=== PATIENT | male | born 1945 | race African-American/Black ===

== ENCOUNTER 2017-04-21 17:34 | Inpatient (IN) | payer OTHER, BC ==
--- NOTE | 2017-04-21 17:39 | PDOC ---
Attending Attestation - Resident Resident Name: Alley Lizamaudmila - ED Attending Attestation I have performed the following: I have examined & evaluated the patient, The case was reviewed & discussed with the resident, I agree w/resident's findings & plan, Exceptions are as noted - HPI HPI: 04/21/17 17:37 The patient is 71 year old male with a significant past medical history of HTN, HLD, CAD/CMP (s/p cardiac transplant 2007) who presents to the ED after he lost consciousness while in the elevator. It was witnessed and had no preceeding symptoms. The loss of consciousness was brief. There was no noted seizure activity. He denies incontinence. He denies chest pain, dyspnea, palpitations, nausea, diaphoresis. 04/21/17 17:45 - Physicial Exam PE: 04/21/17 17:38 Vitals noted He is well appearing 04/21/17 17:39 - Medical Decision Making 04/21/17 17:39 He is well appearing and in no acute distress Will obtain labs, EKG, CXR 04/21/17 17:39 04/21/17 18:30 Chest x-ray emergency Department interpretation: Status post median sternotomy wires noted, no acute pathology demonstrated Labs pending 04/21/17 18:43 Clinical impression: Syncope Elevated creatinine (with unclear baseline) Case discussed in detail with admitting provider including history, physical exam and ancillary studies. Admitting physician has assumed care for the patient, will follow all pending diagnostics and will complete the evaluation and treatment. 04/21/17 18:49 Discharge Disposition - Diagnosis Syncope - Discharge Dispostion Condition at time of disposition: Stable
--- NOTE | 2017-04-21 18:07 | PDOC ---
History of Present Illness - General History Source: Patient, Family Exam Limitations: No Limitations - History of Present Illness Initial Comments: 04/21/17 18:07 The patient is a 71 year old male, with significant past medical history HTN, HLD, [place] s/p heart transplant in 2007, GERD, who presents today after LOC in the elevator 10 minutes ago when leaving the hospital from visiting his , who is an inpatient. The patient was with his daughter who caught him as he slumped down to the ground after losing consciousness. He denies head trauma. He states that one minute he was fine and the next he was being picked up from the floor. He denies dizziness, lightheadedness, headache and has no complaints at this time. He reports chronic diarrhea and attributes it to side effects of one of his medications. He notes that this has happened several years ago after his heart transplant and was told it was due to dehydration. He denies dizziness, lightheadedness He denies chest pain, SOB, palpitations. He denies abdominal pain, recent leg swelling. He denies fever, chills, nausea, vomiting. Allergies: contrast dye Awning Spreader: Dr. Rashard Velez <Kaitlin Christine - Last Filed: 04/21/17 18:07> - General History Source: Patient Exam Limitations: No Limitations <Brooke Lizama - Last Filed: 04/21/17 18:45> - General Chief Complaint: Syncope/Near Syncope Stated Complaint: SYNCOPE Time Seen by Provider: 04/21/17 17:36 Past History <Kaitlin Christine - Last Filed: 04/21/17 18:07> - Past Medical History Cardiac Disorders: Yes (CAD, [place]) GI Disorders: Yes (GERD) Hypercholesterolemia: Yes - Surgical History Cardiac Surgery: Yes (HEART TRANSPLANT 2007 [facility]) - Psycho/Social/Smoking Cessation Hx Anxiety: No Suicidal Ideation: No Smoking History: Never smoked Information on smoking cessation initiated: No Hx Alcohol Use: No Drug/Substance Use Hx: No <Brooke Lizama - Last Filed: 04/21/17 18:45> - Past Medical History Allergies/Adverse Reactions: Allergies Allergy/AdvReac Type Severity Reaction Status Date / Time CONTRAST DYE Allergy Uncoded 04/21/17 17:36 Home Medications: Ambulatory Orders Aspirin [Aspirin EC] 325 mg PO DAILY 04/21/17 Calcium Carbonate [Calcium] 500 mg PO DAILY 04/21/17 Citalopram Hydrobromide [Celexa -] 10 mg PO DAILY 04/21/17 Doxazosin Mesylate 2 mg PO DAILY 04/21/17 Metoprolol Succinate [Toprol Xl] 50 mg PO DAILY 04/21/17 Multivitamins [Tab-A-Vit -] 1 tab PO DAILY 04/21/17 Mycophenolate Sodium [Myfortic] 1,440 mg PO BID 04/21/17 Pantoprazole Sodium [Protonix] 40 mg PO DAILY 04/21/17 Pravastatin Sodium [Pravachol (Nf)] 40 mg PO HS 04/21/17 Tacrolimus [Prograf] 5 mg PO BID 04/21/17 Review of Systems - Review of Systems Able to Perform ROS?: Yes Comments:: 04/21/17 18:07 GENERAL: Well-appearing, well-nourished. No apparent distress. HEENT: Normocephalic, atraumatic. PERRL, EOM intact. CARDIOVASCULAR: Normal S1, S2. Regular rate and rhythm. PULMONARY: Clear to auscultation bilaterally. ABDOMEN: Soft, non-distended, non-tender. EXTREMITIES: Normal ROM in all four extremities. No gross deformities. SKIN: Warm, dry. No rash NEUROLOGICAL: +LOC. No focal neurological deficits. <Kaitlin Christine - Last Filed: 04/21/17 18:07> *Physical Exam - Vital Signs Last Vital Signs Temp Pulse Resp BP Pulse Ox 97.8 F 80 18 96/65 100 04/21/17 17:35 04/21/17 17:35 04/21/17 17:35 04/21/17 17:35 04/21/17 17:35 - Physical Exam Comments: 04/21/17 18:08 GENERAL: Well developed, well nourished. Awake, alert and oriented x3. In no acute distress. HEENT: Normocephalic, atraumatic. PERRLA, EOMI. No conjunctival pallor. Sclera are non- icteric. Moist mucous membranes, but overall the patient does appear a little bit dry. Oropharynx is clear. NECK: Supple. Full ROM. No JVD. Carotid pulses 2+ and symmetric, without bruits. No thyromegaly. No lymphadenopathy. CARDIOVASCULAR: Regular rate and rhythm. No murmurs, rubs, or gallops. Distal pulses are 2+ and symmetric. No JVD. No hepatojugular reflex. PULMONARY: No evidence of respiratory distress. Lungs clear to auscultation bilaterally. No wheezing, rales or rhonchi. ABDOMINAL: Soft. Non-tender. Non-distended. No rebound or guarding. No organomegaly. Normoactive bowel sounds. MUSCULOSKELETAL Normal range of motion at all joints. No bony deformities or tenderness. No CVA tenderness. EXTREMITIES: No cyanosis. No clubbing. No edema. No calf tenderness. SKIN: Warm and dry. Normal capillary refill. No rashes. No jaundice. NEUROLOGICAL: Alert, awake, appropriate. Cranial nerves 2-12 intact. PSYCHIATRIC: Cooperative. Good eye contact. Appropriate mood and affect. <Kaitlin Christine - Last Filed: 04/21/17 18:07> - Vital Signs Last Vital Signs Temp Pulse Resp BP Pulse Ox 97.8 F 80 18 96/65 100 04/21/17 17:35 04/21/17 17:35 04/21/17 17:35 04/21/17 17:35 04/21/17 17:35 <Brooke Lizama - Last Filed: 04/21/17 18:45> ED Treatment Course - LABORATORY CBC & Chemistry Diagram: 04/21/17 18:00 04/21/17 18:00 <Kaitlin Christine - Last Filed: 04/21/17 18:07> - LABORATORY CBC & Chemistry Diagram: 04/21/17 18:00 04/21/17 18:00 - RADIOLOGY Radiology Studies Ordered: Category Date Time Status CXRPORT [CHEST X-RAY PORTABLE*] [RAD] Stat Radiology 04/21/17 17:55 Ordered <Boroke Lizama - Last Filed: 04/21/17 18:45> Medical Decision Making - Medical Decision Making 04/21/17 18:12 Patient presents with clinical picture most consistent with arrythmic syncope, given taht he has history of cardiac transplant and no prodrome prior to syncope. EKG shows RBBB and nonspecific t inversions in anterior and precordial leads, RBBB with normal axis, ns rythm. Patient is comfortable and hemodynamically stable. order cbc w diff, cmp, cardiac profile, mag, tsh, ua, cxr 04/21/17 18:23 CBC unremarkable 04/21/17 18:30 CXR s/p sternotomy, unremarkable for intrathoracic pathology 04/21/17 18:39 BUN Creat 31/2.9, baseline unknown. Patient and daughter deny prior renal issues. We are only able to obtain a send out tacrolimus level. will hydrate and recheck labs AM 04/21/17 18:40 Na 132 mag 1.8, K 4.4 Cardiac profile unremarkable. Start NS IV bolus 500cc. 04/21/17 18:41 Patient to be placed on tele obs overnight <Brooke Lizama - Last Filed: 04/21/17 18:45> *DC/Admit/Observation/Transfer - Attestations Scribe Attestion: 04/21/17 18:08 Documentation prepared by TIFF Marshall, acting as medical records administrator for Renato Newell MD. <Kaitlin Christine - Last Filed: 04/21/17 18:07> - Discharge Dispostion Admit: Yes <Brooke Lizama - Last Filed: 04/21/17 18:45> Diagnosis at time of Disposition: Syncope - Discharge Dispostion Condition at time of disposition: Stable
[2017-04-21 18:12] LABS: BASOPHIL 0.6 % (0-2.0); EOSINOPHIL 0.2 % (0-4.5); MCH 28.5 pg (25.7-33.7); MCHC 32.7 g/dl (32.0-35.9); MEAN CELL VOLUME 87.1 fl (80-96); MEAN PLT VOLUME 9.4 fl (7.5-11.1); NEUTROPHILS 65.5 % (42.8-82.8); PLATELET COUNT 206 K/MM3 (134-434); WHITE BLOOD COUNT 7.3 K/mm3 (4.0-10.8)
[2017-04-21 18:21] LABS: CPK(DFH) 75 IU/L (38-174)
[2017-04-21 18:22] LABS: ALK PHOS 58 U/L (32-92); ANION GAP 10 (8-16); BILIRUBIN,TOTAL 1.1 mg/dl (0.2-1.0); CALCIUM 8.8 mg/dl (8.4-10.2); CO2 23 mmol/L (22-28); CREATININE 2.9 mg/dl (0.6-1.3); GLUCOSE,RANDOM 103 mg/dl (74-106); MAGNESIUM 1.8 mg/dL (1.8-2.4); SGOT/AST 22 U/L (10-42); SGPT/ALT 24 U/L (10-40); TOT PROT 6.7 g/dl (6.4-8.3)
[2017-04-21 18:35] LABS: TROPONIN I (DFP) < 0.03 ng/ml (0.03-0.50)
[2017-04-21] MEDS ORDERED: SODIUM CHLORIDE 500 ML IV STA (18:41)
[2017-04-21 19:05] LABS: THYROID STIMULATING HORMONE 2.83 uIU/ml (0.358-3.74)
--- NOTE | 2017-04-21 21:40 | HP ---
CHIEF COMPLAINT: Syncope PCP: Dr. Langston HISTORY OF PRESENT ILLNESS: This is a 71 year old male with a past medical history of Hypertension, Hyperlipidemia, [place] s/p Heart Transplant (on Tacrolimus, 2007), GERD. Who presents to the emergency department with a syncopal episode x today. Patient reports having a syncopal episode while in the elevator afterPatient reports feeling lightheaded and dizzy prior to the event. Patient reports not eating due to decreased appetite x 24 hrs. Patient's daughter reports while the patient was in the elevator he began to sway and he fainted. She reports catching him and sliding him down onto his buttock. ER course was notable for: (1) EKG-RBBB, non-specific TWI, anterior/precordial leads (2) Chest Xray- no acute pathology (3) Na 132 (4) CISCO- BUN 31, Cr 2.9 Recent Travel: None PAST MEDICAL HISTORY: See HPI PAST SURGICAL HISTORY: Heart Transplant 2007 [facility] Cardiac Cath Social History: Smoking: Former > 40 yrs ago Alcohol: Former Drugs: None Lives with spouse Family History: Father- Pneumonia, Sister- Hypertension Allergies Iodinated Contrast Media - Oral and Allergy (Unknown, Verified 04/21/17 19:33) HOME MEDICATIONS: Home Medications Medication Instructions Recorded Aspirin [Aspirin EC] 325 mg PO DAILY 04/21/17 Calcium Carbonate [Calcium] 500 mg PO DAILY 04/21/17 Citalopram Hydrobromide [Celexa -] 10 mg PO DAILY 04/21/17 Doxazosin Mesylate 2 mg PO DAILY 04/21/17 Metoprolol Succinate [Toprol Xl] 50 mg PO DAILY 04/21/17 Multivitamins [Tab-A-Vit -] 1 tab PO DAILY 04/21/17 Mycophenolate Sodium [Myfortic] 720 mg PO BID 04/21/17 Pantoprazole Sodium [Protonix] 40 mg PO DAILY 04/21/17 Pravastatin Sodium [Pravachol (Nf)] 40 mg PO HS 04/21/17 Tacrolimus [Prograf] 0.5 mg PO BID 04/21/17 REVIEW OF SYSTEMS CONSTITUTIONAL: loss of appetite Absent: fever, chills, diaphoresis, generalized weakness, malaise, weight change HEENT: Absent: rhinorrhea, nasal congestion, throat pain, throat swelling, difficulty swallowing, mouth swelling, ear pain, eye pain, visual changes CARDIOVASCULAR: syncope, lightheadedness Absent: chest pain, palpitations, irregular heart rate, peripheral edema RESPIRATORY: Absent: cough, shortness of breath, dyspnea with exertion, orthopnea, wheezing, stridor, hemoptysis GASTROINTESTINAL: Absent: abdominal pain, abdominal distension, nausea, vomiting, diarrhea, constipation, melena, hematochezia GENITOURINARY: Absent: dysuria, frequency, urgency, hesitancy, hematuria, flank pain, genital pain MUSCULOSKELETAL: Absent: myalgia, arthralgia, joint swelling, back pain, neck pain SKIN: Absent: rash, itching, pallor HEMATOLOGIC/IMMUNOLOGIC: Absent: easy bleeding, easy bruising, lymphadenopathy, frequent infections ENDOCRINE: Absent: unexplained weight gain, unexplained weight loss, heat intolerance, cold intolerance NEUROLOGIC: dizziness Absent: headache, focal weakness or paresthesias, unsteady gait, seizure, mental status changes, bladder or bowel incontinence PSYCHIATRIC: Absent: anxiety, depression, suicidal or homicidal ideation, hallucinations. PHYSICAL EXAMINATION Vital Signs - 24 hr 04/21/17 20:00 Temperature 98.4 F Pulse Rate [ 78 Left Apical] Respiratory 18 Rate Blood Pressure 117/76 [Left Arm] O2 Sat by Pulse 100 Oximetry (%) GENERAL: Awake, alert, and fully oriented, in no acute distress. HEAD: Normal with no signs of trauma. EYES: Pupils equal, round and reactive to light, extraocular movements intact, sclera anicteric, conjunctiva clear. No lid lag. EARS, NOSE, THROAT: Ears normal, nares patent, oropharynx clear without exudates. Dry mucous membranes. NECK: Normal range of motion, supple without lymphadenopathy, JVD, or masses. LUNGS: Breath sounds equal, clear to auscultation bilaterally. No wheezes, and no crackles. No accessory muscle use. HEART: Regular rate and rhythm, normal S1 and S2 without murmur, rub or gallop. ABDOMEN: Soft, nontender, not distended, normoactive bowel sounds, no guarding, no rebound, no masses. No hepatomegaly or splenomegaly. MUSCULOSKELETAL: Normal range of motion at all joints. No bony deformities or tenderness. No CVA tenderness. UPPER EXTREMITIES: 2+ pulses, warm, well-perfused. No cyanosis. No clubbing. No peripheral edema. LOWER EXTREMITIES: 2+ pulses, warm, well-perfused. No calf tenderness. No peripheral edema. NEUROLOGICAL: Cranial nerves II-XII intact. Normal speech. Gait not observed. Fine tremor to bilateral upper extremities noted PSYCHIATRIC: Cooperative. Good eye contact. Appropriate mood and affect. SKIN: Warm, dry, normal turgor, no rashes. Normal capillary refill. Healed surgical scars to mid-sternum, left chest wall noted Laboratory Results - last 24 hr 04/21/17 04/21/17 04/21/17 18:00 18:00 18:00 WBC 7.3 RBC 4.36 Hgb 12.4 Hct 38.0 MCV 87.1 MCHC 32.7 RDW 14.0 Plt Count 206 MPV 9.4 Neutrophils % 65.5 Lymphocytes % 21.8 Monocytes % 11.9 H Eosinophils % 0.2 Basophils % 0.6 Sodium 132 L Potassium 4.4 Chloride 99 Carbon Dioxide 23 Anion Gap 10 BUN 31 H Creatinine 2.9 H Creat Clearance w eGFR 21.50 Random Glucose 103 Calcium 8.8 Magnesium 1.8 Total Bilirubin 1.1 H AST 22 ALT 24 Alkaline Phosphatase 58 Creatine Kinase 75 Troponin I < 0.03 L Total Protein 6.7 Albumin 4.0 TSH 2.83 ASSESSMENT/PLAN: This is a 71 y/o male with a PMHx of: HTN, HLD, [place] s/p Heart Transplant (on Prograf, ), GERD. Placed on Telemetry Observation for further evaluation of their emergent condition. Plan: 1. Syncope - Likely secondary to dehydration vs arrhythmia - Tele monitoring - Serial Enzymes neg x1 - Trend Chago - Carotid Doppler in am - Consider Echo in outpatient - Ortho Statics - Monitor CBC, BMP 2. Acute Kidney Injury - Likely secondary to Dehydration - NS bolus given in ED - Repeat BMP in am - Consider Renal US if Cr trends up - f/u with Nephrology in outpatient upon d/c 3. Hypertension - Controlled - Monitor BP - Continue Lopressor with parameters 4. Hyperlipidemia - Continue Statin - Monitor LFTs - Lipid Profile in am 5. CAD/[place] Hx - Stable - s/p Heart Transplant, 08 - Tele monitoring - Patient denies chest pain or palpitations - Serial Enzymes neg x1 - EKG reviewed, no prior study available to compare - Continue home meds-Metoprolol, Myfortic, Prograf 6. GERD - Continue PPI 7. Depression - Continue Celexa 8. FEN - Tolerates PO fluids - Replete lytes prn - Low Na, Low Cholesterol Diet 9. DVT Prophylaxis - OOB - SCDs - Consider AC if LOS > 48 hrs Code Status: Full Code Problem List - Problem (1) Syncope Code(s): R55 - SYNCOPE AND COLLAPSE (2) HTN (hypertension) Code(s): I10 - ESSENTIAL (PRIMARY) HYPERTENSION (3) HLD (hyperlipidemia) Code(s): E78.5 - HYPERLIPIDEMIA, UNSPECIFIED (4) Status post heart transplant Code(s): Z94.1 - HEART TRANSPLANT STATUS (5) GERD (gastroesophageal reflux disease) Code(s): K21.9 - GASTRO-ESOPHAGEAL REFLUX DISEASE WITHOUT ESOPHAGITIS (6) DVT prophylaxis Code(s): [id number] - Visit type - Emergency Visit Emergency Visit: Yes ED Registration Date: 04/21/17 Care time: The patient presented to the Emergency Department on the above date and was hospitalized for further evaluation of their emergent condition. - New Patient This patient is new to me today: Yes Date on this admission: 04/21/17 - Critical Care Critical Care patient: No
[2017-04-21] MEDS: ATORVASTATIN CA 10 MG TABLET (FP) PO SCH (21:45)
[2017-04-21] MEDS ORDERED: TACROLIMUS 5 MG PO SCH (22:00)
[2017-04-21 22:31] VITALS: BMI 27.4
[2017-04-21 23:42] LABS: URINE APPEARANCE Clear; URINE BILIRUBIN Negative (NEGATIVE); URINE GLUCOSE (UA) Negative (NEGATIVE); URINE KETONE Negative (NEGATIVE); URINE LEUK ESTERASE Negative (NEGATIVE); URINE NITRITE Negative (NEGATIVE); URINE PROTEIN Negative (NEGATIVE); URINE UROBILINOGEN 0.2 E.U/dl (0.2-1.0)
[2017-04-21 23:44] LABS: URINE BLOOD 3 (NEGATIVE); URINE COLOR YELLOW
[2017-04-21 23:52] LABS: URINE BACTERIA FEW /hpf (NEGATIVE); URINE WBC 0-3 (3-5)
[2017-04-21 23:57] LABS: CPK(DFH) 68 IU/L (38-174)
[2017-04-22 00:04] LABS: TROPONIN I (DFP) < 0.03 ng/ml (0.03-0.50)
--- NOTE | 2017-04-22 07:24 | PN ---
Physical Exam: SUBJECTIVE: Patient seen and examined at bedside without any complaints at this time. OBJECTIVE: Vital Signs Period Temp Pulse Resp BP Sys/Cooley Pulse Ox Last 24 Hr 97.7 F-98.4 F 75-82 18-19 117-133/76-86 100-100 GENERAL: The patient is awake, alert, and fully oriented, in no acute distress. LUNGS: Breath sounds equal, clear to auscultation bilaterally, no wheezes, no crackles, no accessory muscle use. HEART: Regular rate and rhythm, S1, S2 without murmur, rub or gallop. Denies SOB or chest pain ABDOMEN: Soft, nontender, nondistended, normoactive bowel sounds, no guarding, no rebound, no hepatosplenomegaly, no masses. EXTREMITIES: 2+ pulses, warm, well-perfused, no edema. NEUROLOGICAL: Cranial nerves II through XII grossly intact. Normal speech, gait not observed. PSYCH: Normal mood, normal affect. SKIN: Warm, dry, normal turgor, no rashes or lesions noted Laboratory Results - last 24 hr 04/21/17 04/21/17 22:31 23:30 Creatine Kinase 68 Troponin I < 0.03 L Urine Color Yellow Urine Appearance Clear Urine pH 5.0 Ur Specific Kiron <= 1.005 Urine Protein Negative Urine Glucose (UA) Negative Urine Ketones Negative Urine Blood 3 H Urine Nitrite Negative Urine Bilirubin Negative Urine Urobilinogen 0.2 e.u/dl Ur Leukocyte Esterase Negative Urine RBC 10-15 Urine WBC 0-3 Ur Epithelial Cells Few Urine Bacteria Few Active Medications Generic Name Dose Route Start Last Admin Trade Name Freq PRN Reason Stop Dose Admin Aspirin 325 mg 04/22/17 10:00 Ecotrin - PO DAILY [facility] Atorvastatin Calcium 10 mg 04/21/17 22:00 04/21/17 21:45 Lipitor - PO 10 mg HS ANDRES Administration Calcium Carbonate 500 mg 04/22/17 10:00 Os-Piyush 500mg - PO DAILY ANDRES Citalopram Hydrobromide 10 mg 04/22/17 10:00 Celexa - PO DAILY [facility]RES Doxazosin Mesylate 2 mg 04/22/17 10:00 Cardura - PO DAILY [facility] Metoprolol Succinate 50 mg 04/22/17 10:00 Toprol Xl - PO DAILY [facility] Multivitamins/Minerals/Vitamin C 1 tab 04/22/17 10:00 Tab-A-Vit - PO DAILY ANDRES Non-Formulary Medication 720 mg 04/21/17 22:00 Mycophenolate Sodium [Myfortic] PO BID ANDRES Pantoprazole Sodium 40 mg 04/22/17 10:00 Protonix - PO DAILY ANDRES ASSESSMENT/PLAN: This is a 71 y/o male with a PMHx of: HTN, HLD, [place] s/p Heart Transplant (on Prograf, ), GERD. Placed on Telemetry Observation for further evaluation of their emergent condition. Plan: 1. Syncope - Likely secondary to dehydration vs arrhythmia - Tele monitoring - Serial Enzymes neg x3 - Carotid Doppler ordered and pending* - Echo ordered and pending* - Ortho Statics - Monitor CBC, BMP - Will need [facility]/w him his trend Cr. also discuss with him stress test? and is it a persantine? pt is scheduled to have in one month in his office? Not available today to discuss and can reach out on Sunday morning. 2. Acute Kidney Injury - Likely secondary to Dehydration? no hx noted here - NS bolus given in ED and second dose to be given today* 3. Hypertension - Controlled - Monitor BP - Continue Lopressor with parameters 4. Hyperlipidemia - Continue Statin - Monitor LFTs 5. CAD/[place] Hx - Stable - s/p Heart Transplant, 08 - Tele monitoring - Patient denies chest pain or palpitations - Serial Enzymes neg x3 - EKG reviewed, no prior study available to compare - Continue home meds - 6. GERD - Continue PPI 7. Depression - Continue Celexa 8. FEN - Tolerates PO fluids - Replete lytes prn - Low Na, Low Cholesterol Diet 9. DVT Prophylaxis - OOB - SCDs - Consider AC if LOS > 48 hrs Code Status: Full Code Problem List - Problems (1) DVT prophylaxis Code(s): [id number] - (2) HLD (hyperlipidemia) Code(s): E78.5 - HYPERLIPIDEMIA, UNSPECIFIED (3) HTN (hypertension) Code(s): I10 - ESSENTIAL (PRIMARY) HYPERTENSION (4) Status post heart transplant Code(s): Z94.1 - HEART TRANSPLANT STATUS Visit type - Emergency Visit Emergency Visit: No - New Patient This patient is new to me today: Yes Date on this admission: 04/22/17 - Critical Care Critical Care patient: No - Discharge Referral Referred to [facility] Med P.C.: No
[2017-04-22 08:19] LABS: ANION GAP 7 (8-16); CALCIUM 8.7 mg/dl (8.4-10.2); CO2 24 mmol/L (22-28); CREATININE 2.3 mg/dl (0.6-1.3); GLUCOSE,RANDOM 89 mg/dl (74-106); MAGNESIUM 1.8 mg/dL (1.8-2.4); PHOSPHOROUS 3.7 mg/dl (2.5-4.6)
[2017-04-22 08:24] LABS: CHOLESTEROL 79 mg/dl
[2017-04-22 08:56] LABS: BASOPHIL 0.1 % (0-2.0); EOSINOPHIL 0.4 % (0-4.5); MCH 28.1 pg (25.7-33.7); MCHC 32.3 g/dl (32.0-35.9); MEAN PLT VOLUME 9.3 fl (7.5-11.1); NEUTROPHILS 66.8 % (42.8-82.8); PLATELET COUNT 187 K/MM3 (134-434); RDW 14.1 % (11.9-15.9); WHITE BLOOD COUNT 5.4 K/mm3 (4.0-10.8)
[2017-04-22 09:46] LABS: CPK(DFH) 84 IU/L (38-174)
[2017-04-22 09:55] LABS: TROPONIN I (DFP) < 0.03 ng/ml (0.03-0.50)
[2017-04-22] MEDS: DOXAZOSIN MESYLATE 2 MG TABLET (FP) PO SCH (09:57)
[2017-04-22] MEDS: METOPROLOL SUCCINATE 50 MG TAB.SR.24H (FP) PO SCH (09:57)
[2017-04-22] MEDS: CALCIUM (OYSTER SHELL) 500 MG TABLET (FP) PO SCH (09:57)
[2017-04-22] MEDS: ASPIRIN 325 MG ENTERIC COATED TABLET (FP) PO SCH (09:57)
[2017-04-22] MEDS: MULTIVITAMINS (DAILY MVI) TABLET (FP) PO SCH (09:57)
[2017-04-22] MEDS: PANTOPRAZOLE 40 MG TABLET (FP) PO SCH (09:58)
[2017-04-22] MEDS: CITALOPRAM HYDROBROMIDE 10 MG TABLET (FP) PO SCH (09:58)
[2017-04-22] MEDS ORDERED: SODIUM CHLORIDE 500 ML IV STA (10:18)
[2017-04-22] MEDS ORDERED: ONDANSETRON 4 MG/2 ML VIAL IVPUSH PRN (12:40)
[2017-04-22] MEDS ORDERED: ACETAMINOPHEN 325 MG TABLET (FP) PO PRN (12:40)
--- NOTE | 2017-04-22 12:44 | PN ---
Progress Note (short form) - Note Progress Note: 1230 pm Called by RN pt with c/o right sided flank pain that radiated to abdomen. He had received a bolus trial if cr would further trend downward. Review of UA with +3 blood, and now flank pain, will order u/s of kidneys and pain management/zofran for nausea. Will follow. addendum: 330 pm U/S renal neg for hydronephrosis or stone. Problem List - Problems (1) DVT prophylaxis Code(s): [id number] - (2) HLD (hyperlipidemia) Code(s): E78.5 - HYPERLIPIDEMIA, UNSPECIFIED (3) HTN (hypertension) Code(s): I10 - ESSENTIAL (PRIMARY) HYPERTENSION (4) Status post heart transplant Code(s): Z94.1 - HEART TRANSPLANT STATUS Visit type - Emergency Visit Emergency Visit: No - New Patient This patient is new to me today: No - Critical Care Critical Care patient: No - Discharge Referral Referred to [facility] Med P.C.: No
--- NOTE | 2017-04-22 14:33 | EKG ---
Test Reason : Blood Pressure : / mmHG Vent. Rate : 076 BPM Atrial Rate : 076 BPM P-R Int : 152 ms QRS Dur : 128 ms QT Int : 422 ms P-R-T Axes : 059 037 051 degrees QTc Int : 474 ms NORMAL SINUS RHYTHM POSSIBLE LEFT ATRIAL ENLARGEMENT RIGHT BUNDLE BRANCH BLOCK NO PREVIOUS ECGS AVAILABLE Confirmed by MD DUANE, IFEOMA ([id number]) on 04/22/2017 2:33:16 PM Referred By: ISABELLA GONZALEZ Confirmed By:IFEOMA ZEPEDA MD
[2017-04-22] MEDS ORDERED: DOCUSATE SODIUM 100 MG CAPSULE (FP) PO PRN (16:36)
[2017-04-22] MEDS: ATORVASTATIN CA 10 MG TABLET (FP) PO SCH (23:05)
[2017-04-23 08:50] LABS: BASOPHIL 0.1 % (0-2.0); EOSINOPHIL 0.2 % (0-4.5); MCH 28.6 pg (25.7-33.7); MCHC 32.8 g/dl (32.0-35.9); MEAN CELL VOLUME 87.2 fl (80-96); NEUTROPHILS 69.7 % (42.8-82.8); PLATELET COUNT 200 K/MM3 (134-434); RDW 13.5 % (11.9-15.9); WHITE BLOOD COUNT 5.9 K/mm3 (4.0-10.8)
[2017-04-23 09:11] LABS: ALBUMIN 3.6 g/dl (3.5-5.0); ALK PHOS 51 U/L (32-92); ANION GAP 9 (8-16); BILIRUBIN,TOTAL 0.7 mg/dl (0.2-1.0); CALCIUM 8.7 mg/dl (8.4-10.2); CO2 25 mmol/L (22-28); CREATININE 2.4 mg/dl (0.6-1.3); GLUCOSE,RANDOM 115 mg/dl (74-106); SGOT/AST 17 U/L (10-42); SGPT/ALT 20 U/L (10-40)
--- NOTE | 2017-04-23 09:49 | PN ---
Physical Exam: SUBJECTIVE: Patient seen and examined, patient reports ongoing abdominal pain worsens upon position changes, pt denies any chest pain, dizziness or shortness of breath. . OBJECTIVE: patient is a 71 y/o male with a past medical history of Hypertension , Hyperlipidemia, [place] s/p Heart Transplant (on Tacrolimus, 2007), and GERD. Patient was admitted from the emergency department to observation s/p syncopal episode. Vital Signs Period Temp Pulse Resp BP Sys/Cooley Pulse Ox Last 24 Hr 97.5 F-98.3 F 70-87 17-19 125-157/76-93 98-99 GENERAL: The patient is awake, alert, and fully oriented, in no acute distress. HEAD: Normal with no signs of trauma. EYES: PERRL, extraocular movements intact, sclera anicteric, conjunctiva clear. No ptosis. ENT: Ears normal, nares patent, oropharynx clear without exudates, moist mucous membranes. NECK: Trachea midline, full range of motion, supple. LUNGS: Breath sounds equal, clear to auscultation bilaterally, no wheezes, no crackles, no accessory muscle use. HEART: Regular rate and rhythm, S1, S2, 3/6 systolic murmur, rub or gallop., well healed midline surgical scar. ABDOMEN: Soft, right upper quadrant tenderness. nontender, nondistended, normoactive bowel sounds, no guarding, no rebound, no hepatosplenomegaly, no masses. EXTREMITIES: 2+ pulses, warm, well-perfused, no edema. NEUROLOGICAL: Cranial nerves II through XII grossly intact. Normal speech, gait not observed. PSYCH: Normal mood, normal affect. SKIN: Warm, dry, normal turgor, no rashes or lesions noted Laboratory Results - last 24 hr 04/22/17 04/23/17 04/23/17 06:50 07:40 07:40 WBC 5.9 RBC 4.14 Hgb 11.9 Hct 36.2 MCV 87.2 MCHC 32.8 RDW 13.5 Plt Count 200 MPV 9.0 Neutrophils % 69.7 Lymphocytes % 19.4 Monocytes % 10.6 H Eosinophils % 0.2 Basophils % 0.1 Sodium 134 L Potassium 4.0 Chloride 100 Carbon Dioxide 25 Anion Gap 9 BUN 25 H D Creatinine 2.4 H Creat Clearance w eGFR 26.74 Random Glucose 115 H D Calcium 8.7 Total Bilirubin 0.7 D AST 17 D ALT 20 Alkaline Phosphatase 51 Creatine Kinase 84 Troponin I < 0.03 L Total Protein 6.0 L Albumin 3.6 Active Medications Generic Name Dose Route Start Last Admin Trade Name Freq PRN Reason Stop Dose Admin Acetaminophen 650 mg 04/22/17 12:40 04/22/17 12:55 Tylenol - PO 650 mg Q4H PRN Administration FEVER OR PAIN Aspirin 325 mg 04/22/17 10:00 04/22/17 09:57 Ecotrin - PO 325 mg DAILY ANDRES Administration Atorvastatin Calcium 10 mg 04/21/17 22:00 04/22/17 23:05 Lipitor - PO 10 mg HS ANDRES Administration Calcium Carbonate 500 mg 04/22/17 10:00 04/22/17 09:57 Os-Piyush 500mg - PO 500 mg DAILY ANDRES Administration Citalopram Hydrobromide 10 mg 04/22/17 10:00 04/22/17 09:58 Celexa - PO 10 mg DAILY ANDRES Administration Docusate Sodium 100 mg 04/22/17 16:36 Colace - PO BID PRN CONSTIPATION Doxazosin Mesylate 2 mg 04/22/17 10:00 04/22/17 09:57 Cardura - PO 2 mg DAILY ANDRES Administration Metoprolol Succinate 50 mg 04/22/17 10:00 04/22/17 09:57 Toprol Xl - PO 50 mg DAILY ANDRES Administration Multivitamins/Minerals/Vitamin C 1 tab 04/22/17 10:00 04/22/17 09:57 Tab-A-Vit - PO 1 tab DAILY ANDRES Administration Non-Formulary Medication 720 mg 04/21/17 22:00 Mycophenolate Sodium [Myfortic] PO BID ANDRES Ondansetron HCl 4 mg 04/22/17 12:40 04/22/17 12:55 Zofran Injection IVPUSH 4 mg Q6H PRN Administration NAUSEA AND/OR VOMITING Pantoprazole Sodium 40 mg 04/22/17 10:00 04/22/17 09:58 Protonix - PO 40 mg DAILY ANDRES Administration imaging Carotid Doppler-no high-grade stenosis noted ASSESSMENT/PLAN: 1.card Syncope - discussed with patient's pensions retirement plan specialist, Dr. Velez, and does have a past medical history of multiple syncopal episodes in the past, echocardiogram, stress tests and cardiac workup negative as per Dr. Velez. patient to follow up with Dr. Velez tomorrow morning in the office - no dysrhythmia noted on continous cardiac monitoring - Serial Enzymes neg x3 - Carotid Doppler negative for stenosis - Echo ordered and pending hyper tension - Continue Lopressor, strict blood pressure monitoring S/P heart transplant 2007 - Dr. Velezcardiologist, contacted via phone, made aware of findings, must follow up with pensions retirement plan specialist 24 hours after discharge - Continue Cardura - Continue CellCept and Prograf, patient brought home medications, Prograf level 7 (WNL) on 03/19/17 - continue statin lft's wnl 2. nephrolithasis -creatinine on Mar 19 2017, 1.63 and Mar 09 2017, creatinine 2.0 repeat creatine today, is 2.4 close to baseline -ct scan of abdomen/pelvis ordered-> 2, 3, 4 mm UVJ calculi with mild hydronephrosis, at the right UVJ. - will start flomax, appreciate urology input 3) gi GERD - Continue PPI 4) Depression - Continue Celexa FEN - Tolerates PO fluids - Replete lytes prn - Low Na, Low Cholesterol Diet DVT Prophylaxis - OOB - SCDs - Consider AC if LOS > 48 hrs Code Status: Full Code Visit type - Emergency Visit Emergency Visit: Yes ED Registration Date: 04/24/17 Care time: The patient presented to the Emergency Department on the above date and was hospitalized for further evaluation of their emergent condition. - New Patient This patient is new to me today: No - Critical Care Critical Care patient: No - Discharge Referral Referred to [facility] Med P.C.: No
[2017-04-23] MEDS ORDERED: MYCOPHENOLATE MOFETIL 250 MG CAPSULE PO SCH (10:15)
[2017-04-23] MEDS: MULTIVITAMINS (DAILY MVI) TABLET (FP) PO SCH (10:46)
[2017-04-23] MEDS: ASPIRIN 325 MG ENTERIC COATED TABLET (FP) PO SCH (10:46)
[2017-04-23] MEDS: CALCIUM (OYSTER SHELL) 500 MG TABLET (FP) PO SCH (10:46)
[2017-04-23] MEDS: METOPROLOL SUCCINATE 50 MG TAB.SR.24H (FP) PO SCH (10:47)
[2017-04-23] MEDS: CITALOPRAM HYDROBROMIDE 10 MG TABLET (FP) PO SCH (10:47)
[2017-04-23] MEDS: PANTOPRAZOLE 40 MG TABLET (FP) PO SCH (10:47)
[2017-04-23] MEDS: DOXAZOSIN MESYLATE 2 MG TABLET (FP) PO SCH (10:47)
[2017-04-23] MEDS: PROGRAF PO SCH ×2 (10:52→21:30)
[2017-04-23] MEDS ORDERED: TAMSULOSIN HCL 0.4 MG CAP.ER.24H (FP) PO ONE (12:50)
[2017-04-23] MEDS ORDERED: SODIUM CHLORIDE 0.45% 1,000 ML IV SCH (17:30)
[2017-04-23] MEDS: PATIENT'S OWN MEDICATION (NON-FORMULARY) (Mycophenolate Sodium [Myfortic] 720 MG) PO SCH (19:07)
[2017-04-23] MEDS ORDERED: PT OWN MED DRAWER 7, Y5N ONE (21:10)
[2017-04-23] MEDS: ATORVASTATIN CA 10 MG TABLET (FP) PO SCH (21:29)
[2017-04-23] MEDS: MYCOPHENOLATE SODIUM 360 MG PO SCH (21:30)
--- NOTE | 2017-04-24 07:32 | CON.GU ---
Consult Consult Specialty:: Referred by:: Hernan Reason for Consultation:: R ureteral calculi - History of Present Illness Chief Complaint: syncope History of Present Illness: 71 yo m w hx HTN, HLD, CAD s/p heart transplant adm w syncope found to have elevated BUN/creat (2.4, previously 1.6), R UVJ calculi x 2 (4 mm) assoc w mild R hydronephrosis, bilat UP renal calculi and abd pain. cons req. - History Source History Provided By: Patient, Medical Record Limitations to Obtaining History: No Limitations - Past Medical History Cardio/Vascular: Yes: CAD, HTN, Hyperlipdemia Gastrointestinal: Yes: GERD Renal/: Yes: Renal Inusuff, Renal Calculi - Past Surgical History Additional Surgical History: heart transplant - Alcohol/Substance Use Hx Alcohol Use: No - Smoking History Smoking history: Never smoked Have you smoked in the past 12 months: No Home Medications - Allergies Allergies/Adverse Reactions: Allergies Allergy/AdvReac Type Severity Reaction Status Date / Time Iodinated Contrast Media - Allergy Unknown Verified 04/21/17 19:33 Oral and - Home Medications Home Medications: Ambulatory Orders Aspirin [Aspirin EC] 325 mg PO DAILY 04/21/17 Calcium Carbonate [Calcium] 500 mg PO DAILY 04/21/17 Citalopram Hydrobromide [Celexa -] 10 mg PO DAILY 04/21/17 Doxazosin Mesylate 2 mg PO DAILY 04/21/17 Metoprolol Succinate [Toprol Xl] 50 mg PO DAILY 04/21/17 Multivitamins [Tab-A-Vit -] 1 tab PO DAILY 04/21/17 Mycophenolate Sodium [Myfortic] 720 mg PO BID 04/21/17 Pantoprazole Sodium [Protonix] 40 mg PO DAILY 04/21/17 Pravastatin Sodium [Pravachol (Nf)] 40 mg PO HS 04/21/17 Tacrolimus [Prograf] 0.5 mg PO BID 04/21/17 Review of Systems - Review of Systems Gastrointestinal: reports: Abdominal Pain Physical Exam- Vital Signs: Vital Signs Temperature 98.3 F 04/24/17 06:00 Pulse Rate 76 04/24/17 06:00 Respiratory Rate 19 04/24/17 06:00 Blood Pressure 138/82 04/24/17 06:00 O2 Sat by Pulse Oximetry (%) 100 04/24/17 02:44 Gastrointestinal: Yes: Tenderness Labs: CBC, BMP 04/23/17 07:40 04/23/17 07:40 Imaging - Results Cat Scan: Report Reviewed Problem List - Problems (1) Hydronephrosis Code(s): N13.30 - UNSPECIFIED HYDRONEPHROSIS Qualified Code(s): - (2) Ureteral calculi Code(s): N20.1 - CALCULUS OF URETER Assessment/Plan Imp: R UVJ calculi, mild R hydronephrosis, bilat renal calculi, CISCO, renal cysts and possible solid masses Rec: ivfs, flomax, strain urine, R ureteroscopic laser lithotripsy and JJ stent insertion 04/25, Hold ASA. F/U in my office after disch for CT abd pelvis w IV contrast after renal function normalizes to eval poss solid masses.
[2017-04-24] MEDS ORDERED: PT OWN MED DRAWER 7, Y5N ONE ×3 (09:16→21:00)
[2017-04-24] MEDS: CITALOPRAM HYDROBROMIDE 10 MG TABLET (FP) PO SCH (09:20)
[2017-04-24] MEDS: METOPROLOL SUCCINATE 50 MG TAB.SR.24H (FP) PO SCH (09:20)
[2017-04-24] MEDS: DOXAZOSIN MESYLATE 2 MG TABLET (FP) PO SCH (09:20)
[2017-04-24] MEDS: CALCIUM (OYSTER SHELL) 500 MG TABLET (FP) PO SCH (09:20)
[2017-04-24] MEDS: MULTIVITAMINS (DAILY MVI) TABLET (FP) PO SCH (09:20)
[2017-04-24] MEDS: PANTOPRAZOLE 40 MG TABLET (FP) PO SCH (09:20)
[2017-04-24] MEDS: ASPIRIN 325 MG ENTERIC COATED TABLET (FP) PO SCH ×2 (09:20→09:43)
[2017-04-24] MEDS: TAMSULOSIN HCL 0.4 MG CAP.ER.24H (FP) PO SCH (09:21)
[2017-04-24] MEDS: MYCOPHENOLATE SODIUM 360 MG PO SCH ×2 (09:21→21:26)
[2017-04-24] MEDS: PROGRAF PO SCH ×2 (09:21→21:26)
--- NOTE | 2017-04-24 11:08 | PN ---
Physical Exam: SUBJECTIVE: Patient seen and examined, patient reports feeling well, reports dull ache to abdomen, tolerating fluids, denies any tactile fever. OBJECTIVE:patient is a 71 y/o male with a past medical history of Hypertension, Hyperlipidemia, [place] s/p Heart Transplant (on Tacrolimus, 2007), and GERD. Patient was admitted from the emergency department to observation s/p syncopal episode. Vital Signs Period Temp Pulse Resp BP Sys/Cooley Pulse Ox Last 24 Hr 98.3 F-98.7 F 76-80 18-19 121-138/79-82 97-100 GENERAL: The patient is awake, alert, and fully oriented, in no acute distress. HEAD: Normal with no signs of trauma. EYES: PERRL, extraocular movements intact, sclera anicteric, conjunctiva clear. No ptosis. ENT: Ears normal, nares patent, oropharynx clear without exudates, moist mucous membranes. NECK: Trachea midline, full range of motion, supple. LUNGS: Breath sounds equal, clear to auscultation bilaterally, no wheezes, no crackles, no accessory muscle use. HEART: Regular rate and rhythm, S1, S2, 3/6 systolic murmur, rub or gallop., well healed midline surgical scar. ABDOMEN: Soft, nontender, nondistended, normoactive bowel sounds, no guarding, no rebound, no hepatosplenomegaly, no masses. right cva tenderness EXTREMITIES: 2+ pulses, warm, well-perfused, no edema. NEUROLOGICAL: Cranial nerves II through XII grossly intact. Normal speech, gait not observed. PSYCH: Normal mood, normal affect. SKIN: Warm, dry, normal turgor, no rashes or lesions noted Laboratory Results - last 24 hr 04/23/17 07:40 Sodium 134 L Potassium 4.0 Chloride 100 Carbon Dioxide 25 Anion Gap 9 BUN 25 H D Creatinine 2.4 H Creat Clearance w eGFR 26.74 Random Glucose 115 H D Calcium 8.7 Total Bilirubin 0.7 D AST 17 D ALT 20 Alkaline Phosphatase 51 B-Natriuretic Peptide 2381.29 H Total Protein 6.0 L Albumin 3.6 CBC WBC 5.9 K/mm3 (4.0-10.8) 04/23/17 07:40 RBC 4.14 M/mm3 (4.00-5.60) 04/23/17 07:40 Hgb 11.9 GM/dl (11.7-16.9) 04/23/17 07:40 Hct 36.2 % (35.4-49) 04/23/17 07:40 MCV 87.2 fl (80-96) 04/23/17 07:40 MCHC 32.8 g/dl (32.0-35.9) 04/23/17 07:40 RDW 13.5 % (11.9-15.9) 04/23/17 07:40 Plt Count 200 K/MM3 (134-434) 04/23/17 07:40 MPV 9.0 fl (7.5-11.1) 04/23/17 07:40 Neutrophils % 69.7 % (42.8-82.8) 04/23/17 07:40 Lymphocytes % 19.4 % (8-40) 04/23/17 07:40 Monocytes % 10.6 % (3.8-10.2) H 04/23/17 07:40 Eosinophils % 0.2 % (0-4.5) 04/23/17 07:40 Basophils % 0.1 % (0-2.0) 04/23/17 07:40 Active Medications Generic Name Dose Route Start Last Admin Trade Name Freq PRN Reason Stop Dose Admin Acetaminophen 650 mg 04/22/17 12:40 04/22/17 12:55 Tylenol - PO 650 mg Q4H PRN Administration FEVER OR PAIN Aspirin 325 mg 04/22/17 10:00 04/24/17 09:43 Ecotrin - PO Not Given DAILY ANDRES Atorvastatin Calcium 10 mg 04/21/17 22:00 04/23/17 21:29 Lipitor - PO 10 mg HS ANDRES Administration Calcium Carbonate 500 mg 04/22/17 10:00 04/24/17 09:20 Os-Piyush 500mg - PO 500 mg DAILY ANDRES Administration Citalopram Hydrobromide 10 mg 04/22/17 10:00 04/24/17 09:20 Celexa - PO 10 mg DAILY ANDRES Administration Docusate Sodium 100 mg 04/22/17 16:36 Colace - PO BID PRN CONSTIPATION Doxazosin Mesylate 2 mg 04/22/17 10:00 04/24/17 09:20 Cardura - PO 2 mg DAILY ANDRES Administration Metoprolol Succinate 50 mg 04/22/17 10:00 04/24/17 09:20 Toprol Xl - PO 50 mg DAILY ANDRES Administration Multivitamins/Minerals/Vitamin C 1 tab 04/22/17 10:00 04/24/17 09:20 Tab-A-Vit - PO 1 tab DAILY ANDRES Administration Mycophenolate Sodium 720 mg 04/23/17 22:00 04/24/17 09:21 Mycophenolic Acid PO 720 mg BID ANDRES Administration Patient's Own 1 each 04/23/17 10:15 04/24/17 09:21 Medication (Non- PO 1 each Formulary) Prograf 0 BID ANDRES Administration .5 Ondansetron HCl 4 mg 04/22/17 12:40 04/22/17 12:55 Zofran Injection IVPUSH 4 mg Q6H PRN Administration NAUSEA AND/OR VOMITING Pantoprazole Sodium 40 mg 04/22/17 10:00 04/24/17 09:20 Protonix - PO 40 mg DAILY ANDRES Administration Tamsulosin HCl 0.4 mg 04/24/17 08:30 04/24/17 09:21 Flomax - PO 0.4 mg DAILY@0830 ANDRES Administration imaging Carotid Doppler-no high-grade stenosis noted echo LV WNL, grade II diastolic dysfunction ASSESSMENT/PLAN: 1.card Syncope - case discussed with patient's supervisor quality control, Dr. Velez, and does have a past medical history of multiple syncopal episodes in the past, echocardiogram, stress tests and cardiac workup negative as per Dr. Velez. patient to follow up with Dr. Velez 24 hours after discharge in the office - no dysrhythmia noted on continous cardiac monitoring - Serial Enzymes neg x3 hyper tension - Continue Lopressor, strict blood pressure monitoring S/P heart transplant 2007 - Dr. Velze supervisor quality control, contacted via phone, made aware of findings, must follow up with supervisor quality control 24 hours after discharge - Continue Cardura - Continue CellCept and Prograf, patient brought home medications, Prograf level 7 (WNL) on 03/19/17 - continue statin lft's wnl 2. nephrolithasis -creatinine on Mar 19 2017, 1.63 and Mar 09 2017, creatinine 2.0--> repeat creatine today,is 2.4 close to baseline -ct scan of abdomen/pelvis ordered-> 2, 3, 4 mm UVJ calculi with mild hydronephrosis, at the right UVJ. - continue flomax, case discussed with Dr Barlow (urology), pt is pending cystocopy and stent tomm 3) gi GERD - Continue PPI 4) Depression - Continue Celexa FEN - Tolerates PO fluids - Replete lytes prn - Low Na, Low Cholesterol Diet DVT Prophylaxis - OOB - SCDs - hold AC pending OR Code Status: Full Code Visit type - Emergency Visit Emergency Visit: Yes ED Registration Date: 04/24/17 Care time: The patient presented to the Emergency Department on the above date and was hospitalized for further evaluation of their emergent condition. - New Patient This patient is new to me today: No - Critical Care Critical Care patient: No - Discharge Referral Referred to [facility] Med P.C.: No
[2017-04-24] MEDS ORDERED: SODIUM CHLORIDE 0.45% 1,000 ML IV SCH (11:15)
[2017-04-24] MEDS: ATORVASTATIN CA 10 MG TABLET (FP) PO SCH (21:26)
[2017-04-25] MEDS: TAMSULOSIN HCL 0.4 MG CAP.ER.24H (FP) PO SCH (08:59)
[2017-04-25] MEDS ORDERED: PT OWN MED DRAWER 7, Y5N ONE ×2 (09:47→11:50)
[2017-04-25] MEDS ORDERED: LOPERAMIDE HCL 2 MG CAPSULE PO PRN ×2 (09:48→16:43)
[2017-04-25] MEDS: PROGRAF PO SCH (09:49)
[2017-04-25] MEDS: CITALOPRAM HYDROBROMIDE 10 MG TABLET (FP) PO SCH (09:50)
[2017-04-25] MEDS: CALCIUM (OYSTER SHELL) 500 MG TABLET (FP) PO SCH (09:50)
[2017-04-25] MEDS: MULTIVITAMINS (DAILY MVI) TABLET (FP) PO SCH (09:50)
[2017-04-25] MEDS: DOXAZOSIN MESYLATE 2 MG TABLET (FP) PO SCH (09:50)
[2017-04-25] MEDS: METOPROLOL SUCCINATE 50 MG TAB.SR.24H (FP) PO SCH (09:50)
[2017-04-25] MEDS: MYCOPHENOLATE SODIUM 360 MG PO SCH (09:50)
[2017-04-25] MEDS: PANTOPRAZOLE 40 MG TABLET (FP) PO SCH (09:50)
[2017-04-25] MEDS ORDERED: MAGNESIUM HYDROX 2400MG/30ML ORAL SUSPENSION 30 ML CUP PO PRN (12:54)
--- NOTE | 2017-04-25 13:57 | PN ---
Progress Note (short form) - Note Progress Note: Mr. Dietz has arrived at [facility] for ASU for lithotripsy of the right kidney with non obstructive stones but with + pain. Pt will stay and be reassessed ater procedure. Problem List - Problems (1) DVT prophylaxis Code(s): [id number] - (2) HLD (hyperlipidemia) Code(s): E78.5 - HYPERLIPIDEMIA, UNSPECIFIED Qualifiers: Hyperlipidemia type: unspecified Qualified Code(s): E78.5 - Hyperlipidemia, unspecified (3) HTN (hypertension) Code(s): I10 - ESSENTIAL (PRIMARY) HYPERTENSION Qualifiers: Hypertension type: essential hypertension Qualified Code(s): I10 - Essential (primary) hypertension (4) Status post heart transplant Code(s): Z94.1 - HEART TRANSPLANT STATUS (5) Hydronephrosis Code(s): N13.30 - UNSPECIFIED HYDRONEPHROSIS Qualifiers: Hydronephrosis type: with renal calculous obstruction Qualified Code (s): N13.2 - Hydronephrosis with renal and ureteral calculous obstruction (6) Renal calculi Code(s): N20.0 - CALCULUS OF KIDNEY Visit type - Emergency Visit Emergency Visit: No - New Patient This patient is new to me today: No - Critical Care Critical Care patient: No - Discharge Referral Referred to [facility] Med P.C.: No
--- NOTE | 2017-04-25 14:03 | PN ---
Physical Exam: SUBJECTIVE: Patient seen and examined, reports dull ache to left flank, denies any chest pain or shortness of breath. OBJECTIVE:patient is a 71 y/o male with a past medical history of Hypertension, Hyperlipidemia, [place] s/p Heart Transplant (on Tacrolimus, 2007), and GERD. Patient was admitted from the emergency department for emergent condition. Vital Signs Period Temp Pulse Resp BP Sys/Cooley Pulse Ox Last 24 Hr 97.5 F-98.8 F 76-82 16-20 120-148/78-100 98-99 GENERAL: The patient is awake, alert, and fully oriented, in no acute distress. HEAD: Normal with no signs of trauma. EYES: PERRL, extraocular movements intact, sclera anicteric, conjunctiva clear. No ptosis. ENT: Ears normal, nares patent, oropharynx clear without exudates, moist mucous membranes. NECK: Trachea midline, full range of motion, supple. LUNGS: Breath sounds equal, clear to auscultation bilaterally, no wheezes, no crackles, no accessory muscle use. HEART: Regular rate and rhythm, S1, S2, 3/6 systolic murmur, rub or gallop., well healed midline surgical scar. ABDOMEN: Soft, nontender, nondistended, normoactive bowel sounds, no guarding, no rebound, no hepatosplenomegaly, no masses. right cva tenderness EXTREMITIES: 2+ pulses, warm, well-perfused, no edema. NEUROLOGICAL: Cranial nerves II through XII grossly intact. Normal speech, gait not observed. PSYCH: Normal mood, normal affect. SKIN: Warm, dry, normal turgor, no rashes or lesions noted Active Medications Generic Name Dose Route Start Last Admin Trade Name Freq PRN Reason Stop Dose Admin Acetaminophen 650 mg 04/22/17 12:40 04/22/17 12:55 Tylenol - PO 650 mg Q4H PRN Administration FEVER OR PAIN Aspirin 325 mg 04/22/17 10:00 04/24/17 09:43 Ecotrin - PO Not Given DAILY ANDRES Atorvastatin Calcium 10 mg 04/21/17 22:00 04/24/17 21:26 Lipitor - PO 10 mg HS ANDRES Administration Calcium Carbonate 500 mg 04/22/17 10:00 04/25/17 09:50 Os-Piyush 500mg - PO 500 mg DAILY ANDRES Administration Citalopram Hydrobromide 10 mg 04/22/17 10:00 04/25/17 09:50 Celexa - PO 10 mg DAILY ANDRES Administration Docusate Sodium 100 mg 04/22/17 16:36 Colace - PO BID PRN CONSTIPATION Doxazosin Mesylate 2 mg 04/22/17 10:00 04/25/17 09:50 Cardura - PO 2 mg DAILY ANDRES Administration Dextrose/Sodium Chloride 1,000 mls @ 75 mls/hr 04/25/17 00:00 04/25/17 00:19 D5-1/2ns - IV 75 mls/hr ASDIR ANDRES Administration Loperamide HCl 2 mg 04/25/17 09:48 04/25/17 10:07 Imodium - PO 2 mg Q8H PRN Administration DIARRHEA Metoprolol Succinate 50 mg 04/22/17 10:00 04/25/17 09:50 Toprol Xl - PO 50 mg DAILY ANDRES Administration Multivitamins/Minerals/Vitamin C 1 tab 04/22/17 10:00 04/25/17 09:50 Tab-A-Vit - PO 1 tab DAILY ANDRES Administration Mycophenolate Sodium 720 mg 04/23/17 22:00 04/25/17 09:50 Mycophenolic Acid PO 720 mg BID ANDRES Administration Patient's Own 1 each 04/23/17 10:15 04/25/17 09:49 Medication (Non- PO 1 each Formulary) Prograf 0 BID ANDRES Administration .5 Ondansetron HCl 4 mg 04/22/17 12:40 04/22/17 12:55 Zofran Injection IVPUSH 4 mg Q6H PRN Administration NAUSEA AND/OR VOMITING Pantoprazole Sodium 40 mg 04/22/17 10:00 04/25/17 09:50 Protonix - PO 40 mg DAILY ANDRES Administration Tamsulosin HCl 0.4 mg 04/24/17 08:30 04/25/17 08:59 Flomax - PO 0.4 mg DAILY@0830 ANDRES Administration CBC WBC 5.9 K/mm3 (4.0-10.8) 04/23/17 07:40 RBC 4.14 M/mm3 (4.00-5.60) 04/23/17 07:40 Hgb 11.9 GM/dl (11.7-16.9) 04/23/17 07:40 Hct 36.2 % (35.4-49) 04/23/17 07:40 MCV 87.2 fl (80-96) 04/23/17 07:40 MCHC 32.8 g/dl (32.0-35.9) 04/23/17 07:40 RDW 13.5 % (11.9-15.9) 04/23/17 07:40 Plt Count 200 K/MM3 (134-434) 04/23/17 07:40 MPV 9.0 fl (7.5-11.1) 04/23/17 07:40 Neutrophils % 69.7 % (42.8-82.8) 04/23/17 07:40 Lymphocytes % 19.4 % (8-40) 04/23/17 07:40 Monocytes % 10.6 % (3.8-10.2) H 04/23/17 07:40 Eosinophils % 0.2 % (0-4.5) 04/23/17 07:40 Basophils % 0.1 % (0-2.0) 04/23/17 07:40 CMP Sodium 134 mmol/L (136-145) L 04/23/17 07:40 Potassium 4.0 mmol/L (3.5-5.1) 04/23/17 07:40 Chloride 100 mmol/L (98-107) 04/23/17 07:40 Carbon Dioxide 25 mmol/L (22-28) 04/23/17 07:40 Anion Gap 9 (8-16) 04/23/17 07:40 BUN 25 mg/dl (7-18) H D 04/23/17 07:40 Creatinine 2.4 mg/dl (0.6-1.3) H 04/23/17 07:40 Creat Clearance w eGFR 26.74 (>60) 04/23/17 07:40 Random Glucose 115 mg/dl (74-106) H D 04/23/17 07:40 Calcium 8.7 mg/dl (8.4-10.2) 04/23/17 07:40 Phosphorus 3.7 mg/dl (2.5-4.6) 04/22/17 06:50 Magnesium 1.8 mg/dL (1.8-2.4) 04/22/17 06:50 Total Bilirubin 0.7 mg/dl (0.2-1.0) D 04/23/17 07:40 AST 17 U/L (10-42) D 04/23/17 07:40 ALT 20 U/L (10-40) 04/23/17 07:40 Alkaline Phosphatase 51 U/L (32-92) 04/23/17 07:40 Creatine Kinase 84 IU/L (38-174) 04/22/17 06:50 Troponin I < 0.03 ng/ml (0.03-0.50) L 04/22/17 06:50 B-Natriuretic Peptide 2381.29 pg/ml (5-125) H 04/23/17 07:40 Total Protein 6.0 g/dl (6.4-8.3) L 04/23/17 07:40 Albumin 3.6 g/dl (3.5-5.0) 04/23/17 07:40 Triglycerides 61 mg/dl (35-160) 04/22/17 06:50 Cholesterol 79 mg/dl 04/22/17 06:50 Total LDL Cholesterol 35 mg/dl 04/22/17 06:50 HDL Cholesterol 32 mg/dl (29-89) 04/22/17 06:50 TSH 2.83 uIU/ml (0.358-3.74) 04/21/17 18:00 imaging Carotid Doppler-no high-grade stenosis noted echo LV WNL, grade II diastolic dysfunction ASSESSMENT/PLAN: 1.card Syncope - case discussed with patient's animal caretaker, Dr. Velez, and patient does have a past medical history of multiple syncopal episodes in the past, echocardiogram, stress tests and cardiac workup are negative as per Dr. Velez. patient to follow up with Dr. Velez 24 hours after discharge in the office - no dysrhythmia noted on continous cardiac monitoring - Serial Enzymes neg x3 hyper tension - Continue Lopressor, strict blood pressure monitoring S/P heart transplant 2007 - Dr. Velez animal caretaker, contacted via phone, made aware of findings, must follow up with animal caretaker 24 hours after discharge - Continue Cardura - Continue CellCept and Prograf, patient brought home medications, Prograf level 7 (WNL) on 03/19/17 - continue statin lft's wnl 2. nephrolithasis -creatinine on Mar 19 2017, 1.63 and Mar 09 2017, creatinine 2.0--> creatine 2.4 close to baseline, repeat creatine today at 1800 -ct scan of abdomen/pelvis ordered-> 2, 3, 4 mm UVJ calculi with mild hydronephrosis, at the right UVJ. - continue flomax, case discussed with Dr Barlow (urology), pt is pending cystocopy and stent today - Dr Barlow, urology, consulted and following 3) gi GERD - Continue PPI 4) Depression - Continue Celexa FEN - npo-->ivf - Replete lytes prn - Low Na, Low Cholesterol Diet DVT Prophylaxis - OOB - SCDs - hold AC pending OR Code Status: Full Code Visit type - Emergency Visit Emergency Visit: Yes ED Registration Date: 04/24/17 Care time: The patient presented to the Emergency Department on the above date and was hospitalized for further evaluation of their emergent condition. - New Patient This patient is new to me today: No - Critical Care Critical Care patient: No - Discharge Referral Referred to [facility] Med P.C.: No
[2017-04-25] MEDS ORDERED: LIDOCAINE HCL/PF 2% SDV 5ML VIAL ONE (14:42)
[2017-04-25] MEDS ORDERED: PROPOFOL 20 ML ONE (14:42)
[2017-04-25] MEDS ORDERED: MIDAZOLAM HCL 2 MG/2 ML SINGLE DOSE VIAL ONE (14:43)
--- NOTE | 2017-04-25 14:48 | HP ---
History & Physical Update - History History: No Change - Physical Physical: No Change - Assessment Assessment: No Change - Plan Plan: No Change
--- NOTE | 2017-04-25 14:52 | OP ---
Operative Note - Note: Operative Date: 04/25/17 Pre-Operative Diagnosis: R ureteral calculi Operation: R ureteroscopy and JJ stent insertion Post-Operative Diagnosis: Same as Pre-op (Passed R ureteral calculi) Surgeon: Wilmer Barlow Anesthesia: General Specimens Removed: R ureteral calculi Estimated Blood Loss (mls): 0 Drains & Tubes with Location: 6 fr 26 cm R JJ stent Operative Report Dictated: Yes
[2017-04-25] MEDS ORDERED: ceFAZolin SODIUM 1 GM VIAL IVPB ONE (15:00)
[2017-04-25] MEDS ORDERED: ceFAZolin SODIUM 1 GM VIAL ONE (15:00)
[2017-04-25] MEDS ORDERED: PHENYLEPHRINE HCL 10 MG/1 ML SINGLE DOSE VIAL ONE (15:12)
[2017-04-25] MEDS ORDERED: ePHEDrine SULFATE 50 MG/1 ML AMPULE ONE (15:17)
[2017-04-25] MEDS ORDERED: ACETAMINOPHEN 1000 MG/100 ML VIAL (NON FORMULARY) IVPB PRN (15:47)
[2017-04-25] MEDS ORDERED: LACTATED RINGERS SOLUTION 1,000 ML IV SCH (16:00)
--- NOTE | 2017-04-25 16:04 | OP ---
DATE OF OPERATION: 04/25/2017 PREOPERATIVE DIAGNOSIS: Right ureteral calculi. POSTOPERATIVE DIAGNOSIS: Right ureteral calculi (passed right ureteral calculi). PROCEDURE PERFORMED: Cystoscopy, right ureteroscopy and right double-J stent insertion. SURGEON: Wilmer Barlow MD. EMBOSSING PRESS OPERATOR MOLDED GOODS: None. ANESTHESIA: General via laryngeal mask. ANESTHESIOLOGIST: Brendon. SPECIMENS: None. CULTURES: None. DRAINS: A 6-Peruvian 26-cm double-J stent. ESTIMATED BLOOD LOSS: None. COMPLICATIONS: None. PROCEDURE IN DETAIL: The patient was brought into the operating room and placed on the operating table in the supine position. After administration of general anesthesia via laryngeal mask, intravenous antibiotics were administered and the patient was placed in the dorsal lithotomy position and the perineum and genitals were prepped and draped in the usual sterile manner. A 22-Peruvian cystoscope was inserted into the bladder under direct visualization. The anterior urethra was normal. The prostatic urethra was normal. The bladder was entered and thoroughly inspect. There were no foreign body, tumors, stones, inflammation. Both ureteral orifices were in the usual location with clear efflux bilaterally. There was 2+ bladder trabeculation. The right ureteral orifice was cannulated with a 0.038 guidewire which was advanced to the level of the right renal pelvis under fluoroscopic and direct visual guidance. Now, the bladder was emptied, cystoscope was removed. The semirigid ureteroscope was now inserted alongside the guidewire to the level of the proximal ureter where no stones were seen throughout the entire course of the ureter. Retrograde pyelogram was done and demonstrated minimal right hydronephrosis. There were no filling defects, no extravasation. The ureteroscope was removed. The cystoscope was back loaded and a 6-Peruvian 26-cm right double-J stent was inserted over the guidewire leaving 1 coil in the renal pelvis and 1 coil in the bladder. The bladder was emptied and the cystoscope removed. The patient tolerated the procedure well and was transferred to the recovery room in stable condition. PLAN: Maintain stent for several days. Followup BUN and creatinine and followup in the office after discharge. Yani [id number]
[2017-04-25] MEDS ORDERED: DEXTROSE 5%-0.45% SALINE 1,000 ML IV SCH ×2 (16:43)
[2017-04-25] MEDS ORDERED: DOCUSATE SODIUM 100 MG CAPSULE (FP) PO PRN (16:43)
[2017-04-25] MEDS ORDERED: ACETAMINOPHEN 325 MG TABLET (FP) PO PRN (16:43)
[2017-04-25] MEDS ORDERED: ONDANSETRON 4 MG/2 ML VIAL IVPUSH PRN (16:43)
[2017-04-25] MEDS ORDERED: ACETAMINOPHEN INJECTION 100 ML IVPB ONE (16:44)
--- NOTE | 2017-04-25 16:49 | DS ---
Physical Exam: SUBJECTIVE: Patient seen and examined in [facility] OBJECTIVE: Pt was brought over via EMS transit to [facility] for kidney stent placement 2nd to stones> Pt was under the care of Dr. Barlow, urology and stent went well. Pt will now be sent to [facility] and discharged from there once recovered. Vital Signs Period Temp Pulse Resp BP Sys/Cooley Pulse Ox Last 24 Hr 97.5 F-98.8 F 76-82 16-20 120-148/78-100 98-99 PHYSICAL EXAM GENERAL: The patient is awake, alert, and fully oriented, in no acute distress. HEAD: Normal with no signs of trauma. EYES: PERRL, extraocular movements intact, sclera anicteric, conjunctiva clear. ENT: Ears normal, nares patent, oropharynx clear without exudates, moist mucous membranes. NECK: Trachea midline, full range of motion, supple. LUNGS: Breath sounds equal, clear to auscultation bilaterally, no wheezes, no crackles, no accessory muscle use. HEART: Regular rate and rhythm, S1, S2 without murmur, rub or gallop. ABDOMEN: Soft, nontender, nondistended, normoactive bowel sounds, no guarding, no rebound, no hepatosplenomegaly, no masses. EXTREMITIES: 2+ pulses, warm, well-perfused, no edema. NEUROLOGICAL: Cranial nerves II through XII grossly intact. Normal speech, gait not observed. PSYCH: Normal mood, normal affect. SKIN: Warm, dry, normal turgor, no rashes or lesions noted. LABS Pending ~ if labs remained stable, pt may go home. HOSPITAL COURSE: This 71 yr old male was in [facility] to visit his ill . He came with his daughter. While leaving the hospital, he fainted in the elevator and came too within a few moments in the ER at . He was examined and due to his comorbities it was felt we should observe him and rule out 3 CE. Incidentally he was found to have a bump in his Cr and we have no history of labs. He had responded to IVF to decrease cr. However he also developed right flank pain that radiated to the right abd. US of kidney and bladder without finding of stone or hydronephrosis. Pain continued and CT spiral ordered with a finding of part obstructed stone and hydronephrosis. Urology consult to Dr. Barlow who saw pt felt it was necessary to stent the kidney which resulted in relief. He will be discharged home today with his daughter. He will be following up with Dr. La, cardiology transplant doctor and Dr. Barlow, urology with full understandings of instruction. Date of Admission:04/22/17 Date of Discharge: 04/25/17 Minutes to complete discharge: 45 Discharge Summary Reason For Visit: SYNCOPE Current Active Problems DVT prophylaxis (Acute) GERD (gastroesophageal reflux disease) (Acute) HLD (hyperlipidemia) (Acute) HTN (hypertension) (Acute) Hydronephrosis (Acute) Renal calculi (Acute) Status post heart transplant (Acute) Syncope (Acute) Ureteral calculi (Acute) Condition: Stable - Instructions Diet, Activity, Other Instructions: Mr. Dietz You have been hospitalized for kidney stone with a stent placement performed 1. Please call Dr. Barlow at [phone] tomorrow and discuss with his office -if you are uncomfortable with the stent, you could have it removed in the office tomorrow -if you can tolerate the stent, make an appointment next , May 03 to have it removed. -complete antibiotics as prescribed -you may take tylenol for pain. 2. Please call Dr. 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 3. If you develop fever, nausea, vomiting, dehydration, flank pain or difficulty in urinating or bloody urine, please return to the [facility] ER immediately. Disposition: HOME - Home Medications Comprehensive Discharge Medication List: Ambulatory Orders Aspirin [Aspirin EC] 325 mg PO DAILY 04/21/17 Calcium Carbonate [Calcium] 500 mg PO DAILY 04/21/17 Citalopram Hydrobromide [Celexa -] 10 mg PO DAILY 04/21/17 Doxazosin Mesylate 2 mg PO DAILY 04/21/17 Metoprolol Succinate [Toprol Xl] 50 mg PO DAILY 04/21/17 Multivitamins [Tab-A-Vit -] 1 tab PO DAILY 04/21/17 Mycophenolate Sodium [Myfortic] 720 mg PO BID 04/21/17 Pantoprazole Sodium [Protonix] 40 mg PO DAILY 04/21/17 Pravastatin Sodium [Pravachol (Nf)] 40 mg PO HS 04/21/17 Tacrolimus [Prograf] 0.5 mg PO BID 04/21/17 Problem List - Problems (1) DVT prophylaxis Code(s): [id number] - (2) HLD (hyperlipidemia) Code(s): E78.5 - HYPERLIPIDEMIA, UNSPECIFIED Qualifiers: Hyperlipidemia type: unspecified Qualified Code(s): E78.5 - Hyperlipidemia, unspecified (3) HTN (hypertension) Code(s): I10 - ESSENTIAL (PRIMARY) HYPERTENSION Qualifiers: Hypertension type: essential hypertension Qualified Code(s): I10 - Essential (primary) hypertension (4) Status post heart transplant Code(s): Z94.1 - HEART TRANSPLANT STATUS (5) Hydronephrosis Code(s): N13.30 - UNSPECIFIED HYDRONEPHROSIS Qualifiers: Hydronephrosis type: with renal calculous obstruction Qualified Code (s): N13.2 - Hydronephrosis with renal and ureteral calculous obstruction (6) Renal calculi Code(s): N20.0 - CALCULUS OF KIDNEY (7) Syncope Code(s): R55 - SYNCOPE AND COLLAPSE This patient is new to me today: No Emergency Visit: No Critical Care patient: Yes Total Critical Care Time (in minutes): 35 Critical Care Statement: The care of this patient involved high complexity decision making to prevent further life threatening deterioration of the patient 's condition and/or to evalute & treat vital organ system(s) failure or risk of failure. - Discharge Referral Referred to [facility] No
[2017-04-25] MEDS ORDERED: SULFAMETHOXAZOLE/TRIMETHOPRIM 400MG/80MG S.S. TABLET PO ONE (18:07)
[2017-04-25 18:24] VITALS: PULSE 74
[2017-04-25 18:24] LABS: BASOPHIL 0.3 % (0-2.0); EOSINOPHIL 0.3 % (0-4.5); MCH 27.7 pg (25.7-33.7); MEAN CELL VOLUME 86.8 fl (80-96); NEUTROPHILS 59.9 % (42.8-82.8); PLATELET COUNT 207 K/MM3 (134-434); RDW 14.3 % (11.9-15.9); WHITE BLOOD COUNT 4.7 K/mm3 (4.0-10.0)
[2017-04-25 19:08] LABS: ANION GAP 8 (8-16); CALCIUM 8.7 mg/dL (8.5-10.1); CO2 28 mmol/L (21-32); CREATININE 1.9 mg/dL (0.7-1.3); GLUCOSE,RANDOM 104 mg/dL (74-106); MAGNESIUM 1.6 mg/dL (1.8-2.4)
[2017-04-25] MEDS ORDERED: MAGNESIUM SULF 50% (8.12 MEQ/2 ML-1 GM VIAL) IVPB ONE (19:20)
[2017-04-25] MEDS ORDERED: MAGNESIUM OXIDE 400 MG TABLET (FP) PO ONE (19:22)
[2017-04-25 21:18] VITALS: BP 130/78; TEMP 98.1
[2017-04-25] MEDS ORDERED: ATORVASTATIN CA 10 MG TABLET (FP) PO SCH (22:00)
[2017-04-25] MEDS ORDERED: MYCOPHENOLATE SODIUM 360 MG TABLET.DR PO SCH (22:00)
[2017-04-26] MEDS ORDERED: TAMSULOSIN HCL 0.4 MG CAP.ER.24H (FP) PO SCH (08:30)
[2017-04-26] MEDS ORDERED: PANTOPRAZOLE 40 MG TABLET (FP) PO SCH (10:00)
[2017-04-26] MEDS ORDERED: CITALOPRAM HYDROBROMIDE 10 MG TABLET (FP) PO SCH (10:00)
[2017-04-26] MEDS ORDERED: MULTIVITAMINS (DAILY MVI) TABLET (FP) PO SCH (10:00)
[2017-04-26] MEDS ORDERED: CALCIUM (OYSTER SHELL) 500 MG TABLET (FP) PO SCH (10:00)
[2017-04-26] MEDS ORDERED: METOPROLOL SUCCINATE 50 MG TAB.SR.24H (FP) PO SCH (10:00)
[2017-04-26] MEDS ORDERED: DOXAZOSIN MESYLATE 2 MG TABLET (FP) PO SCH (10:00)
--- NOTE | 2017-05-03 14:24 | PN ---
Progress Note (short form) - Note Progress Note: contacted by infectious disease, patient was cohorted with another patient that has tested positive for pertussis. Miki Dietz was discharged home on bactrim DS. patient's daughter, Faheem, was contacted reports feeling well denies any cough and fever, Mr Dietz took complete course of bactrim and was evaluated by his transplant surgeon last week and lab work was negative as per patient. will order an additional 7 days of bactrim. prescription sent to [facility] pharmacy. advised daughter that he must follow up with his transplant surgeon within 2 days for close monitoring of lab work especially potassium level. verbalizes understanding.
== END 2017-04-25 20:25 | disposition home or self-care (01) | DRG 694 ==
LOC: FER 17:34 → FM/S 19:22 → OBSVTOIN 04-24 13:14 → J8W 04-25 13:45 → JSAMEDAYSX 04-25 13:45
PROVIDERS: ADMIT Internal Medicine; ATTEND Nurse Practitioner Family
PROC: 0T768DZ Dilation of Right Ureter with Intraluminal Device, Via Natural or Artificial Opening Endoscopic (ICD-10-PCS; principal; 2017-04-25 15:00)
PROC: 0TJ98ZZ Inspection of Ureter, Via Natural or Artificial Opening Endoscopic (ICD-10-PCS; 2017-04-25 15:00)
PROC: BT1DYZZ Fluoroscopy of Right Kidney, Ureter and Bladder using Other Contrast (ICD-10-PCS; 2017-04-25 15:00)
DX: N13.2 Hydronephrosis with renal and ureteral calculous obstruction (principal); Z94.1 Heart transplant status; R55 Syncope and collapse; E86.0 Dehydration; N17.9 Acute kidney failure, unspecified; I10 Essential (primary) hypertension; E78.5 Hyperlipidemia, unspecified; I25.10 Atherosclerotic heart disease of native coronary artery without angina pectoris; K21.9 Gastro-esophageal reflux disease without esophagitis; F32.9 Major depressive disorder, single episode, unspecified
CPT/HCPCS: 36415; 71010-TC; 74176-TC; 76000-TC; 76775-TC; 80048; 80053; 80061; 81003; 81015; 82550; 83735; 83880; 84100; 84443; 84484; 85025; 93005; 93306-TC; 93880-TC; 94760; 99285-25; G0378; J7517

== ENCOUNTER 2017-05-28 17:06 | Observation (INO) | payer OTHER, BC ==
[2017-05-28 17:26] VITALS: BMI 28.2
--- NOTE | 2017-05-28 18:02 | PDOC ---
History of Present Illness - General History Source: Patient, Family Exam Limitations: No Limitations - History of Present Illness Initial Comments: 05/28/17 18:33 This very pleasant 72yo M with past medical hx of severe MD s/p heart transplant in 2007 presents due to lightheadedness/dizzyness. Pt states he was eating lunch this afternoon when he suddenly felt pale, cold and clammy without any LOC or syncope. States this happened 1 month ago with LOC, and was diagnosed as dehydration. He states he hasn't been drinking much water lately. Pt's daughter endorses slight bottom lip dropping b/l that resolved spontaneously, and denies AMS. Pt endorses diaphoresis at time of event. Pt denies confusion, CP, palpitations, SOB, SALAZAR or abdominal pain at time of event or now. States he feels better now than earlier. Pt states he is allergic to contrast dye (pruritis and hives) He smoked a pipe with unknow amount of tobacco for an unknown number of years, but quit 40-45y ago. States he used to drink 1.5 to 2 large bottles of alcohol, but quit 40-45y ago. Denies any illicit drug use. Timing/Duration: 4-6 hours Severity: mild Associated Symptoms: reports: diaphoresis. denies: chest pain, cough, fever/ chills, headaches, nausea/vomiting, seizure, syncope <Ross De La Paz - Last Filed: 05/28/17 19:10> <Melchor Lewis - Last Filed: 05/28/17 19:26> - General Chief Complaint: Lightheaded Stated Complaint: DIZZYNESS Time Seen by Provider: 05/28/17 18:01 Past History - Travel Traveled outside of the country in the last 30 days: No - Past Medical History Cardiac Disorders: Yes (CAD, MD) GI Disorders: Yes (GERD) Hypercholesterolemia: Yes - Surgical History Cardiac Surgery: Yes (HEART TRANSPLANT 2007 [facility]) - Psycho/Social/Smoking Cessation Hx Anxiety: No Suicidal Ideation: No Smoking History: Unknown if ever smoked Have you smoked in the past 12 months: No Information on smoking cessation initiated: No Hx Alcohol Use: No Drug/Substance Use Hx: No Substance Use Type: None Hx Substance Use Treatment: No <Ross De La Paz - Last Filed: 05/28/17 19:10> <Melchor Lewis - Last Filed: 05/28/17 19:26> - Past Medical History Allergies/Adverse Reactions: Allergies Allergy/AdvReac Type Severity Reaction Status Date / Time Iodinated Contrast- Oral and Allergy Unknown Verified 04/21/17 19:33 IV Dye [Iodinated Contrast Media - Oral and] Home Medications: Ambulatory Orders Aspirin [Aspirin EC] 325 mg PO DAILY 04/21/17 Calcium Carbonate [Calcium] 500 mg PO DAILY 04/21/17 Citalopram Hydrobromide [Celexa -] 10 mg PO DAILY 04/21/17 Doxazosin Mesylate 2 mg PO DAILY 04/21/17 Metoprolol Succinate [Toprol Xl] 50 mg PO DAILY 04/21/17 Multivitamins [Tab-A-Vit -] 1 tab PO DAILY 04/21/17 Mycophenolate Sodium [Myfortic] 720 mg PO BID 04/21/17 Pantoprazole Sodium [Protonix] 40 mg PO DAILY 04/21/17 Pravastatin Sodium [Pravachol (Nf)] 40 mg PO HS 04/21/17 Tacrolimus [Prograf] 0.5 mg PO BID 04/21/17 Review of Systems - Review of Systems Able to Perform ROS?: Yes Is the patient limited Kazakh proficient: No Constitutional: Yes: Diaphoresis, Malaise HEENTM: No: Recent change in vision, Double Vision Respiratory: No: Shortness of Breath, Productive cough Cardiac (ROS): Yes: Lightheadedness. No: Chest Pain, Irregular Heart Rate, Palpitations, Syncope, Chest Tightness ABD/GI: Yes: Poor Fluid Intake. No: Constipated, Diarrhea, Nausea, Abdominal cramping Musculoskeletal: No: Muscle Weakness Integumentary: Yes: Sweating Neurological: Yes: Tremors (medication induced). No: Headache, Seizure <Gabrin,Ross - Last Filed: 05/28/17 19:10> *Physical Exam - Vital Signs Last Vital Signs Temp Pulse Resp BP Pulse Ox 98.1 F 71 20 121/71 99 05/28/17 17:07 05/28/17 17:07 05/28/17 17:07 05/28/17 17:07 05/28/17 17:07 - Physical Exam General Appearance: Yes: Nourished, Appropriately Dressed HEENT: positive: EOMI, Normal Voice, Other (Arcus senilus b/l. L pupil constriction to light sluggish.). negative: Scleral Icterus (R), Scleral Icterus (L) Respiratory/Chest: positive: Lungs Clear, Normal Breath Sounds. negative: Chest Tender, Decreased Breath Sounds, Crackles, Rales, Rhonchi, Stridor, Wheezing Cardiovascular: positive: Regular Rhythm, Regular Rate. negative: Murmur, Irregularly Irregular, Irregular Gastrointestinal/Abdominal: positive: Normal Bowel Sounds, Soft. negative: Tender, Distended, Guarding, Rebound Musculoskeletal: positive: Normal Inspection. negative: CVA Tenderness Integumentary: positive: Diaphoresis. negative: Cyanotic, Jaundice Neurologic: positive: television camera operator II-XII NML intact, Fully Oriented, Alert, Normal Mood/ Affect, Other (LLE hip flexion 4/5, RLE hip flexion 5/5. Rest of muscle strength 5/5.). negative: Confused, Disoriented <Ross De La Paz - Last Filed: 05/28/17 19:10> - Vital Signs Last Vital Signs Temp Pulse Resp BP Pulse Ox 98.1 F 71 20 121/71 99 05/28/17 17:07 05/28/17 17:07 05/28/17 17:07 05/28/17 17:07 05/28/17 17:07 <Melchor Lewis - Last Filed: 05/28/17 19:26> Heart Score/ECG Review - ECG Intrepretation Comment:: 05/28/17 19:25 Vent Rate: 69 bpm IMPRESSION: Normal sinus rhythm. Possible left atrial enlargement. Nonspecific intraventricular block. <Melchor Lewis - Last Filed: 05/28/17 19:26> Medical Decision Making - Medical Decision Making 05/28/17 18:47 This 72M with PMHx MD s/p heart transplant in 2007 presents due to lightheadedness and dizzyness today. 1. Dehydration - BMP - IV fluids 2. r/o pontine hemorrhage or cerebral etiology -due to left pupil light reaction time, and LLE decreased strength -CT scan of head w/o contrast 3. r/o cardiac etiology -due to significant past medical hx -CBC w/ diff, troponins, EKG 05/28/17 19:10 <Ross De La Paz - Last Filed: 05/28/17 19:10> *DC/Admit/Observation/Transfer - Attestations Scribe Attestion: 05/28/17 19:25 Documentation prepared by Melchor Lewis, acting as biomedical service engineer for Ross De La Paz DO. <Melchor Lewis - Last Filed: 05/28/17 19:26>
[2017-05-28 19:51] LABS: BASOPHIL 0.1 % (0-2.0); EOSINOPHIL 0.2 % (0-4.5); MCH 27.7 pg (25.7-33.7); MEAN CELL VOLUME 86.5 fl (80-96); MEAN PLT VOLUME 8.4 fl (7.5-11.1); NEUTROPHILS 77.9 % (42.8-82.8); PLATELET COUNT 202 K/MM3 (134-434); WHITE BLOOD COUNT 6.1 K/mm3 (4.0-10.8)
[2017-05-28 19:56] LABS: INR 1.1 (0.82-1.09); PROTHROMBIN TIME (PATIENT) 12.3 SEC (10.2-13.0)
[2017-05-28 20:02] LABS: ALBUMIN 3.9 g/dl (3.5-5.0); ALK PHOS 57 U/L (32-92); ANION GAP 6 (8-16); BILIRUBIN,TOTAL 1.1 mg/dl (0.2-1.0); CALCIUM 8.8 mg/dl (8.4-10.2); CO2 24 mmol/L (22-28); CPK 88 IU/L (39-308); CREATININE 1.6 mg/dl (0.6-1.3); GLUCOSE,RANDOM 88 mg/dl (74-106); SGOT/AST 19 U/L (10-42); SGPT/ALT 21 U/L (10-40); TOT PROT 6.3 g/dl (6.4-8.3)
[2017-05-28 20:11] LABS: URINE APPEARANCE Clear; URINE BILIRUBIN Negative (NEGATIVE); URINE BLOOD Negative (NEGATIVE); URINE GLUCOSE (UA) Negative (NEGATIVE); URINE KETONE Negative (NEGATIVE); URINE LEUK ESTERASE Negative (NEGATIVE); URINE NITRITE Negative (NEGATIVE); URINE PROTEIN Trace (NEGATIVE); URINE UROBILINOGEN 0.2 (0.2-1.0)
[2017-05-28 20:14] LABS: URINE COLOR YELLOW
[2017-05-28 20:21] LABS: TROPONIN I (DFP) < 0.03 ng/ml (0.03-0.50)
--- NOTE | 2017-05-28 21:50 | PDOC ---
*Physical Exam - Vital Signs Last Vital Signs Temp Pulse Resp BP Pulse Ox 98.1 F 71 20 121/71 99 05/28/17 17:07 05/28/17 17:07 05/28/17 17:07 05/28/17 17:07 05/28/17 17:07 ED Treatment Course - LABORATORY CBC & Chemistry Diagram: 05/28/17 19:30 05/28/17 19:30 - ADDITIONAL ORDERS Additional order review: Laboratory Results 05/28/17 05/28/17 05/28/17 20:00 19:30 19:30 INR 1.10 Sodium 133 L Potassium 4.3 Chloride 103 Carbon Dioxide 24 Anion Gap 6 L BUN 24 H Creatinine 1.6 H D Creat Clearance w eGFR 42.58 Random Glucose 88 D Calcium 8.8 Total Bilirubin 1.1 H D AST 19 ALT 21 Alkaline Phosphatase 57 Creatine Kinase 88 Troponin I < 0.03 L Total Protein 6.3 L Albumin 3.9 Urine Color Yellow Urine Appearance Clear Urine pH 5.0 Ur Specific Mabel 1.020 Urine Protein Trace Urine Glucose (UA) Negative Urine Ketones Negative Urine Blood Negative Urine Nitrite Negative Urine Bilirubin Negative Urine Urobilinogen 0.2 Ur Leukocyte Esterase Negative 05/28/17 19:30 RBC 3.99 L MCV 86.5 MCHC 32.0 RDW 14.0 MPV 8.4 Neutrophils % 77.9 Lymphocytes % 13.7 D Monocytes % 8.1 Eosinophils % 0.2 Basophils % 0.1 Medical Decision Making - Medical Decision Making 05/28/17 21:[address] Burgess of [facility].patient will be admitted( observation/telemetry) Noncontrast head CT pending noncontrast head CT shows no evidence of acute pathology *DC/Admit/Observation/Transfer Diagnosis at time of Disposition: ACS (acute coronary syndrome) - Discharge Dispostion Condition at time of disposition: Guarded Admit: Yes
[2017-05-29] MEDS: TACROLIMUS 0.5 MG CAPSULE (NF) PO SCH ×2 (01:16→09:49)
[2017-05-29] MEDS: MYCOPHENOLATE SODIUM 360 MG TABLET.DR PO SCH ×2 (01:16→09:49)
[2017-05-29 02:12] LABS: CPK 92 IU/L (39-308); TROPONIN I < 0.02 ng/ml (0.00-0.05)
[2017-05-29 02:22] VITALS: TEMP 97.6
--- NOTE | 2017-05-29 04:41 | HP ---
late entry for exam doen at 1am CHIEF COMPLAINT: near syncope PCP: Cardio: Rashard Velez @ [facility] HISTORY OF PRESENT ILLNESS: This is a 72 year old male with a past medical history significant for severe VT , heart transplant 2007 who presented to the ED after episode of sudden onset pale, cold, clammy while eating lunch. Episode spontaneously resolved and pt felt fine by the time he got in the ambulance. Was able to walk to ambulance. Had a similar episode one month ago with syncope and was diagnosed with dehydration. ER course was notable for: (1) sodium slightly low 133 (2) CT head without new infarct Recent Travel: pt denies PAST MEDICAL HISTORY: severe VT resulting in need for heart transplant GERD HLD renal stones PAST SURGICAL HISTORY: heart transplant 2007 Social History: Smoking: quit 40 years ago, smoked a pipe Alcohol: quit 37 years ago Drugs: pt denies Family History: mother uknown father age 60, PNA sister with HTN sister , overdose 1 son no medical problems 1 daughter with BrCA Allergies Iodinated Contrast- Oral and IV Dye [Iodinated Contrast Media - Oral and] Allergy (Unknown, Verified 04/21/17 19:33) HOME MEDICATIONS: 3 Medication Instructions Recorded Aspirin [Aspirin EC] 325 mg PO DAILY 04/21/17 Calcium Carbonate [Calcium] 500 mg PO DAILY 04/21/17 Citalopram Hydrobromide [Celexa -] 10 mg PO DAILY 04/21/17 Doxazosin Mesylate 2 mg PO DAILY 04/21/17 Metoprolol Succinate [Toprol Xl] 50 mg PO DAILY 04/21/17 Multivitamins [Tab-A-Vit -] 1 tab PO DAILY 04/21/17 Mycophenolate Sodium [Myfortic] 720 mg PO BID 04/21/17 Pantoprazole Sodium [Protonix] 40 mg PO DAILY 04/21/17 Pravastatin Sodium [Pravachol (Nf)] 40 mg PO HS 04/21/17 Tacrolimus [Prograf] 0.5 mg PO BID 04/21/17 REVIEW OF SYSTEMS CONSTITUTIONAL: Present: cold, clammy, pale Absent: fever, chills, diaphoresis, generalized weakness, malaise, loss of appetite, weight change HEENT: Absent: rhinorrhea, nasal congestion, throat pain, throat swelling, difficulty swallowing, mouth swelling, ear pain, eye pain, visual changes CARDIOVASCULAR: Absent: chest pain, syncope, palpitations, irregular heart rate, lightheadedness , peripheral edema RESPIRATORY: Absent: cough, shortness of breath, dyspnea with exertion, orthopnea, wheezing, stridor, hemoptysis GASTROINTESTINAL: Absent: abdominal pain, abdominal distension, nausea, vomiting, diarrhea, constipation, melena, hematochezia GENITOURINARY: Absent: dysuria, frequency, urgency, hesitancy, hematuria, flank pain, genital pain MUSCULOSKELETAL: Absent: myalgia, arthralgia, joint swelling, back pain, neck pain SKIN: Absent: rash, itching, pallor HEMATOLOGIC/IMMUNOLOGIC: Absent: easy bleeding, easy bruising, lymphadenopathy, frequent infections ENDOCRINE: Absent: unexplained weight gain, unexplained weight loss, heat intolerance, cold intolerance NEUROLOGIC: Absent: headache, focal weakness or paresthesias, dizziness, unsteady gait, seizure, mental status changes, bladder or bowel incontinence PSYCHIATRIC: Absent: anxiety, depression, suicidal or homicidal ideation, hallucinations. PHYSICAL EXAMINATION Vital Signs - 24 hr 3 05/28/17 05/29/17 05/29/17 17:07 00:37 02:10 Temperature 98.1 F 97.6 F Pulse Rate 71 97 H Respiratory 20 18 Rate Blood Pressure 121/71 135/81 O2 Sat by Pulse 99 100 Oximetry (%) GENERAL: Awake, alert, and fully oriented, in no acute distress. HEAD: Normal with no signs of trauma. EYES: Pupils equal, round and reactive to light, extraocular movements intact, sclera anicteric, conjunctiva clear. No lid lag. EARS, NOSE, THROAT: Ears normal, nares patent, oropharynx clear without exudates. Moist mucous membranes. NECK: Normal range of motion, supple without lymphadenopathy, JVD, or masses. LUNGS: Breath sounds equal, clear to auscultation bilaterally. No wheezes, and no crackles. No accessory muscle use. HEART: Regular rate and rhythm, normal S1 and S2 without murmur, rub or gallop. ABDOMEN: Soft, nontender, not distended, normoactive bowel sounds, no guarding, no rebound, no masses. No hepatomegaly or splenomegaly. MUSCULOSKELETAL: Normal range of motion at all joints. No bony deformities or tenderness. No CVA tenderness. UPPER EXTREMITIES: 2+ pulses, warm, well-perfused. No cyanosis. No clubbing. No peripheral edema. LOWER EXTREMITIES: 2+ pulses, warm, well-perfused. No calf tenderness. No peripheral edema. NEUROLOGICAL: Cranial nerves II-XII intact. Normal speech. Normal gait. PSYCHIATRIC: Cooperative. Good eye contact. Appropriate mood and affect. SKIN: Warm, dry, normal turgor, no rashes or lesions noted, normal capillary refill. Laboratory Results - last 24 hr 3 05/28/17 05/28/17 05/28/17 19:30 19:30 19:30 WBC 6.1 RBC 3.99 L Hgb 11.1 L Hct 34.5 L MCV 86.5 MCH 27.7 MCHC 32.0 RDW 14.0 Plt Count 202 MPV 8.4 Neutrophils % 77.9 Lymphocytes % 13.7 D Monocytes % 8.1 Eosinophils % 0.2 Basophils % 0.1 INR 1.10 Sodium 133 L Potassium 4.3 Chloride 103 Carbon Dioxide 24 Anion Gap 6 L BUN 24 H Creatinine 1.6 H D Creat Clearance w eGFR 42.58 Random Glucose 88 D Calcium 8.8 Total Bilirubin 1.1 H D AST 19 ALT 21 Alkaline Phosphatase 57 Creatine Kinase 88 Troponin I < 0.03 L Total Protein 6.3 L Albumin 3.9 Urine Color Urine Appearance Urine pH Ur Specific [place] Urine Protein Urine Glucose (UA) Urine Ketones Urine Blood Urine Nitrite Urine Bilirubin Urine Urobilinogen Ur Leukocyte Esterase 3 Urine Color Yellow 05/28/17 20:00 Urine Appearance Clear 05/28/17 20:00 Urine pH 5.0 (4.5-8) 05/28/17 20:00 Ur Specific [place] 1.020 (1.005-1.025) 05/28/17 20:00 Urine Protein Trace (NEGATIVE) 05/28/17 20:00 Urine Glucose (UA) Negative (NEGATIVE) 05/28/17 20:00 Urine Ketones Negative (NEGATIVE) 05/28/17 20:00 Urine Blood Negative (NEGATIVE) 05/28/17 20:00 Urine Nitrite Negative (NEGATIVE) 05/28/17 20:00 Urine Bilirubin Negative (NEGATIVE) 05/28/17 20:00 Ur Leukocyte Esterase Negative (NEGATIVE) 05/28/17 20:[address] scan of the brain without intravenous contrast No prior is available for comparison. There is mild volume loss and ventricular dilatation. Focal lucency in the right parietal occipital junction, medially consistent with encephalomalacia/ old infarct. No mass lesion, gross acute infarct or intracranial hemorrhage are identified. There is no shift of the midline structures The calvarium is intact. Visualized paranasal sinuses and mastoid air cells are well aerated. Calcification of the cavernous carotid arteries are present. 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 Otherwise, no gross acute intracranial pathology is identified. Reported By: Caro Shaw MD 05/28/17 2215 Portable chest x-ray, AP sitting Since prior chest x-ray dated 04/21/2017, the cardiac silhouette remains within normal limits in size with mild unfolding of the aortic arch. There is interval better aeration of the left lung base. Minimal atelectatic changes in the right lung base. Impression: Interval better aeration of the left lung base with questionable minimal left pleural effusion. Interval minimal atelectatic changes in the right lung base. Reported By: Caro Shaw MD 05/28/17 1944 ECG NSR, rate 69, QTC 450 Possible LA enlargement RBBB unchanged from previous ECG ASSESSMENT/PLAN: 72yM with PMH severe VT, heart transplant, GERD, HLD, renal stones presented to ED after sudden onset of episode of pale, cold, clammy skin and not "feeling right". Pt has been admitted for further observation. Near syncope - will monitor on tele, r/o arrhythmia - trend troponin - pt has appointment with [facility] for stress test on , if w/u neg, dc home with further outpatient w/u HLD - home pravachol 40 changed to formulary lipitor 10 as per protocol s/p heart transplant - cont antirejection meds GERD - cont protonix CKD - creatinine of 1.6 is lowest value in computer system, cont to avoid nephrotoxic agents DVT PPX - heparin deferred, expected LOS <48 h FEN - tolerating po fluids, encourage same - BMP in am - Low sodium diet as tolerated Dispo: pt currently requires inpatient observation for management of his emergent condition. Visit type - Emergency Visit Emergency Visit: Yes ED Registration Date: 05/28/17 Care time: The patient presented to the Emergency Department on the above date and was hospitalized for further evaluation of their emergent condition. - New Patient This patient is new to me today: Yes Date on this admission: 05/29/17 - Critical Care Critical Care patient: No
[2017-05-29 07:03] VITALS: BP 139/92; PULSE 79
[2017-05-29 08:10] LABS: CPK 80 IU/L (39-308)
[2017-05-29 09:19] LABS: TROPONIN I (DFP) < 0.03 ng/ml (0.03-0.50)
[2017-05-29] MEDS ORDERED: PT OWN MED DRAWER 7, Y5N ONE (09:47)
[2017-05-29] MEDS ORDERED: MULTIVITAMINS (DAILY MVI) TABLET (FP) PO SCH (10:00)
[2017-05-29] MEDS ORDERED: METOPROLOL SUCCINATE 50 MG TAB.SR.24H (FP) PO SCH (10:00)
[2017-05-29] MEDS ORDERED: CITALOPRAM HYDROBROMIDE 10 MG TABLET (FP) PO SCH (10:00)
[2017-05-29] MEDS ORDERED: ASPIRIN 325 MG ENTERIC COATED TABLET (FP) PO SCH (10:00)
[2017-05-29] MEDS ORDERED: CALCIUM (OYSTER SHELL) 500 MG TABLET (FP) PO SCH (10:00)
[2017-05-29] MEDS ORDERED: DOXAZOSIN MESYLATE 2 MG TABLET (FP) PO SCH (10:00)
[2017-05-29] MEDS ORDERED: PANTOPRAZOLE 40 MG TABLET (FP) PO SCH (10:00)
--- NOTE | 2017-05-29 10:53 | DS ---
Physical Exam: SUBJECTIVE: Patient seen and examined OBJECTIVE: Vital Signs Period Temp Pulse Resp BP Sys/Cooley Pulse Ox Last 24 Hr 97.6 F-97.6 F 79-97 18-79 135-139/81-92 100 PHYSICAL EXAM GENERAL: The patient is awake, alert, and fully oriented, in no acute distress. HEAD: Normal with no signs of trauma. EYES: PERRL, extraocular movements intact, sclera anicteric, conjunctiva clear. ENT: Ears normal, nares patent, oropharynx clear without exudates, moist mucous membranes. NECK: Trachea midline, full range of motion, supple. LUNGS: Breath sounds equal, clear to auscultation bilaterally, no wheezes, no crackles, no accessory muscle use. HEART: Regular rate and rhythm, S1, S2 without murmur, rub or gallop. ABDOMEN: Soft, nontender, nondistended, normoactive bowel sounds, no guarding, no rebound, no hepatosplenomegaly, no masses. EXTREMITIES: 2+ pulses, warm, well-perfused, no edema. NEUROLOGICAL: Cranial nerves II through XII grossly intact. Normal speech, gait not observed. PSYCH: Normal mood, normal affect. SKIN: Warm, dry, normal turgor, no rashes or lesions noted. LABS Laboratory Results - last 24 hr 05/29/17 05/29/17 01:00 07:41 Creatine Kinase 92 80 Troponin I < 0.02 < 0.03 L HOSPITAL COURSE: Date of Admission:05/28/17 Date of Discharge: 05/29/17 Minutes to complete discharge: 45 Discharge Summary Reason For Visit: ACUTE CORONARY SYNDROME Current Active Problems ACS (acute coronary syndrome) (Acute) DVT prophylaxis (Acute) GERD (gastroesophageal reflux disease) (Acute) HLD (hyperlipidemia) (Acute) HTN (hypertension) (Acute) Hydronephrosis (Acute) Renal calculi (Acute) Status post heart transplant (Acute) Syncope (Acute) Ureteral calculi (Acute) Condition: Guarded - Home Medications Comprehensive Discharge Medication List: Ambulatory Orders Aspirin [Aspirin EC] 325 mg PO DAILY 04/21/17 Calcium Carbonate [Calcium] 500 mg PO DAILY 04/21/17 Citalopram Hydrobromide [Celexa -] 10 mg PO DAILY 04/21/17 Doxazosin Mesylate 2 mg PO DAILY 04/21/17 Metoprolol Succinate [Toprol Xl] 50 mg PO DAILY 04/21/17 Multivitamins [Tab-A-Vit -] 1 tab PO DAILY 04/21/17 Mycophenolate Sodium [Myfortic] 720 mg PO BID 04/21/17 Pantoprazole Sodium [Protonix] 40 mg PO DAILY 04/21/17 Pravastatin Sodium [Pravachol (Nf)] 40 mg PO HS 04/21/17 Tacrolimus [Prograf] 0.5 mg PO BID 04/21/17
--- NOTE | 2017-05-29 13:57 | EKG ---
Test Reason : Blood Pressure : / mmHG Vent. Rate : 069 BPM Atrial Rate : 069 BPM P-R Int : 160 ms QRS Dur : 130 ms QT Int : 420 ms P-R-T Axes : 041 004 043 degrees QTc Int : 450 ms NORMAL SINUS RHYTHM POSSIBLE LEFT ATRIAL ENLARGEMENT RIGHT BUNDLE BRANCH BLOCK ABNORMAL ECG WHEN COMPARED WITH ECG OF 21-APR-2017 17:43, NO SIGNIFICANT CHANGE WAS FOUND Confirmed by DAYNA PANTOJA MD ([id number]) on 05/29/2017 1:56:54 PM Referred By: SB Confirmed By:DAYNA PANTOJA MD
[2017-05-29] MEDS ORDERED: ATORVASTATIN CA 10 MG TABLET (FP) PO SCH (22:00)
== END 2017-05-29 12:38 | disposition home or self-care (01) ==
LOC: FER 17:06 → FM/S 23:17
PROVIDERS: ADMIT Internal Medicine; ATTEND Nurse Practitioner Family
DX: I24.9 Acute ischemic heart disease, unspecified (principal); I25.10 Atherosclerotic heart disease of native coronary artery without angina pectoris; I25.2 Old myocardial infarction; Z94.1 Heart transplant status; Z91.041 Radiographic dye allergy status; Z79.82 Long term (current) use of aspirin; I12.9 Hypertensive chronic kidney disease with stage 1 through stage 4 chronic kidney disease, or unspecified chronic kidney disease; N18.9 Chronic kidney disease, unspecified; E78.5 Hyperlipidemia, unspecified; R55 Syncope and collapse; N13.2 Hydronephrosis with renal and ureteral calculous obstruction
CPT/HCPCS: 36415; 70450-TC; 71010-TC; 80053; 81003; 84484; 85025; 85610; 93005; 99283-25; G0378

== ENCOUNTER 2017-07-10 06:50 | Day surgery (SDC) | payer OTHER, BC ==
[2017-07-09 11:45] VITALS: BMI 29.0
--- NOTE | 2017-07-10 07:55 | HP ---
History & Physical Update - History History: No Change - Physical Physical: No Change - Assessment Assessment: No Change - Plan Plan: No Change
--- NOTE | 2017-07-10 07:57 | OP ---
Operative Note - Note: Operative Date: 07/10/17 Pre-Operative Diagnosis: R renal calculus Operation: ESWL R Findings: R renal calculus Post-Operative Diagnosis: Same as Pre-op Surgeon: Wilmer Barlow Anesthesiologist/PROFESSOR OF MECHANICAL ENGINEERING: Kristal Argueta MD Anesthesia: Fractional Estimated Blood Loss (mls): 0 Operative Report Dictated: Yes
[2017-07-10] MEDS ORDERED: MIDAZOLAM HCL 2 MG/2 ML SINGLE DOSE VIAL ONE ×2 (08:04→08:10)
[2017-07-10] MEDS ORDERED: LEVOFLOXACIN 500 MG PREMIX BAG IVPB ONE (08:10)
[2017-07-10 09:07] VITALS: TEMP 97.9
[2017-07-10] MEDS ORDERED: ONDANSETRON 4 MG/2 ML VIAL IVPUSH PRN (09:25)
[2017-07-10] MEDS ORDERED: LACTATED RINGERS SOLUTION 1,000 ML IV SCH (09:30)
--- NOTE | 2017-07-10 09:34 | OP ---
DATE OF OPERATION: 07/10/2017 PREOPERATIVE DIAGNOSIS: Right renal calculi. POSTOPERATIVE DIAGNOSIS: Right renal calculi. PROCEDURE: Extracorporeal shock wave lithotripsy, right renal calculi. SURGEON: Wilmer Hoang MD BARKEEPER: None. ANESTHESIA: IV sedation. ANESTHESIOLOGIST: Kristal Argueta MD SPECIMENS: None. CULTURES: None. DRAINS: None. ESTIMATED BLOOD LOSS: None. COMPLICATIONS: None. DESCRIPTION OF PROCEDURE: Patient was brought in the operating room, placed on the operating table in supine position. After administration of intravenous antibiotics, intravenous sedation was administered, and the patient was then positioned over the treatment head. Under ultrasound guidance, several renal calculi were identified, targeted, and delivered 2500 shocks at maximum kilovoltage with excellent fragmentation. He tolerated the procedure well, transferred to the recovery room in stable condition. He will require ESWL, left side. WILMER HOANG M.D. [id number]
[2017-07-10 12:43] VITALS: BP 130/86; PULSE 74
== END 2017-07-10 11:20 | disposition home or self-care (01) ==
LOC: JASU-SURG 06:50
PROVIDERS: ATTEND Urology
PROC: 0TF3XZZ Fragmentation in Right Kidney Pelvis, External Approach (ICD-10-PCS; principal; 2017-07-10 08:00)
DX: N20.0 Calculus of kidney (principal)
CPT/HCPCS: 94760

== ENCOUNTER 2021-04-03 14:16 | Inpatient (IN) | payer OTHER, BC ==
[2021-04-03] MEDS ORDERED: SODIUM CHLORIDE 0.9% 500 ML INFUS.BAG IV ONE (14:52)
[2021-04-03 15:25] LABS: BASO % 0.2 % (0-2.0); EOS % 0.3 % (0-4.5); HEMOGLOBIN 8.7 GM/dL (11.7-16.9); MCH 29.1 pg (25.7-33.7); MCHC 33.4 g/dl (32.0-35.9); MEAN CELL VOLUME 86.9 fl (80-96); MEAN PLT VOLUME 8.7 fl (7.5-11.1); MONO % 5.2 % (3.8-10.2); NEUT % 87.3 % (42.8-82.8); PLATELET COUNT 230 K/MM3 (134-434); RDW 15.3 % (11.9-15.9); WHITE BLOOD COUNT 4.3 K/mm3 (4.0-10.0)
[2021-04-03] MEDS ORDERED: CHLORHEXIDINE GLUCONATE 0.12% 15ML CUP MM ONE (15:35)
[2021-04-03 15:59] LABS: CHLORIDE 107 mmol/L (98-107); SODIUM 134 mmol/L (136-145)
[2021-04-03 16:01] LABS: CALCIUM 8.4 mg/dL (8.5-10.1)
[2021-04-03 16:03] LABS: ALBUMIN 3.5 g/dl (3.4-5.0); ANION GAP 10 MMOL/L (8-16); BLOOD UREA NITROGEN 59.1 mg/dL (7-18); CO2 17 mmol/L (21-32); GLUCOSE,RANDOM 134 mg/dL (74-106)
[2021-04-03 16:05] LABS: SGOT/AST 7 U/L (15-37); SGPT/ALT 18 U/L (13-61)
[2021-04-03 16:07] LABS: BILIRUBIN,TOTAL 0.4 mg/dL (0.2-1); CREATININE 3.3 mg/dL (0.55-1.3); TOT PROT 6.6 g/dl (6.4-8.2)
[2021-04-03 16:08] LABS: ALK PHOS 59 U/L (45-117)
[2021-04-03] MEDS ORDERED: LIDOCAINE VISCOUS 2% ORAL/TOP 20 ML UNIT-DOSE CUP MM ONE (16:35)
[2021-04-03] MEDS: MAG HYDROX/ALH/SMC/DPHA/LIDO 240 ML MOUTHWASH MM SCH ×2 (17:26→23:45)
[2021-04-03] MEDS ORDERED: SODIUM CHLORIDE 1,000 ML IV SCH (18:15)
[2021-04-03] MEDS: MYCOPHENOLATE SODIUM 360 MG TABLET.DR PO SCH (21:42)
[2021-04-03] MEDS: TACROLIMUS 0.5 MG CAPSULE PO SCH (21:43)
[2021-04-04] MEDS: MAG HYDROX/ALH/SMC/DPHA/LIDO 240 ML MOUTHWASH MM SCH ×4 (06:17→23:47)
[2021-04-04 07:34] LABS: BASO % 0.1 % (0-2.0); EOS % 0.8 % (0-4.5); HEMATOCRIT 26.9 % (35.4-49); LYMPH % 18.8 % (8-40); MCH 29.1 pg (25.7-33.7); MCHC 33.2 g/dl (32.0-35.9); MEAN CELL VOLUME 87.4 fl (80-96); MEAN PLT VOLUME 9.1 fl (7.5-11.1); MONO % 11.2 % (3.8-10.2); NEUT % 69.1 % (42.8-82.8); PLATELET COUNT 223 K/MM3 (134-434); RBC 3.08 M/mm3 (4.00-5.60); WHITE BLOOD COUNT 4.2 K/mm3 (4.0-10.0)
[2021-04-04 07:45] LABS: BLOOD UREA NITROGEN 54.8 mg/dL (7-18); CALCIUM 8.2 mg/dL (8.5-10.1)
[2021-04-04 07:49] LABS: CREATININE 2.9 mg/dL (0.55-1.3)
[2021-04-04] MEDS ORDERED: PT OWN MED DRAWER 7, Y5N ONE ×2 (10:08→13:45)
[2021-04-04] MEDS: POTASSIUM CHLORIDE TABS 20 MEQ TABLET.ER (FP) PO SCH ×2 (10:50→15:42)
[2021-04-04] MEDS: MULTIVITAMINS (DAILY MVI) TABLET (FP) PO SCH (10:51)
[2021-04-04] MEDS: MYCOPHENOLATE SODIUM 360 MG TABLET.DR PO SCH ×2 (10:51→21:11)
[2021-04-04] MEDS: TACROLIMUS 0.5 MG CAPSULE PO SCH ×2 (10:52→21:11)
[2021-04-04] MEDS: CITALOPRAM HYDROBROMIDE 10 MG TABLET PO SCH (13:46)
[2021-04-04] MEDS: HEPARIN NA (PORCINE) 5,000 UNITS/ML 1ML VIAL SQ SCH (21:11)
[2021-04-04] MEDS: ATORVASTATIN CA 20 MG TABLET (FP) PO SCH (21:11)
[2021-04-05 00:44] LABS: EPI CELLS 23 /uL (0-25.1); HYALINE CASTS 3 /uL (0-3.1); PH,URINE 5.5 (5.0-8.0); URINE APPEARANCE CLEAR; URINE BACTERIA 19 /uL (0-1359); URINE BILIRUBIN NEGATIVE (NEGATIVE); URINE COLOR YELLOW; URINE GLUCOSE (UA) NEGATIVE (NEGATIVE); URINE KETONE NEGATIVE (NEGATIVE); URINE LEUK ESTERASE NEGATIVE (NEGATIVE); URINE NITRITE NEGATIVE (NEGATIVE); URINE PROTEIN 2+ (NEGATIVE); URINE RBC 28 /uL (0-23.9); URINE UROBILINOGEN 0.2 mg/dL (0.2-1.0); URINE WBC 9 /uL (0-25.8)
[2021-04-05] MEDS: MAG HYDROX/ALH/SMC/DPHA/LIDO 240 ML MOUTHWASH MM SCH ×4 (05:20→23:30)
[2021-04-05] MEDS: HEPARIN NA (PORCINE) 5,000 UNITS/ML 1ML VIAL SQ SCH ×3 (05:21→21:37)
[2021-04-05 07:15] LABS: BASO % 0.1 % (0-2.0); EOS % 1.2 % (0-4.5); HEMATOCRIT 28.8 % (35.4-49); HEMOGLOBIN 9.5 GM/dL (11.7-16.9); LYMPH % 12.6 % (8-40); MEAN CELL VOLUME 87.8 fl (80-96); MEAN PLT VOLUME 8.8 fl (7.5-11.1); MONO % 7.1 % (3.8-10.2); PLATELET COUNT 239 K/MM3 (134-434); RBC 3.28 M/mm3 (4.00-5.60); RDW 15.2 % (11.9-15.9); WHITE BLOOD COUNT 4.7 K/mm3 (4.0-10.0)
[2021-04-05 07:37] LABS: ALBUMIN 3.6 g/dl (3.4-5.0); BLOOD UREA NITROGEN 47.6 mg/dL (7-18); CALCIUM 8.6 mg/dL (8.5-10.1)
[2021-04-05 07:38] LABS: MAGNESIUM 1.5 mg/dL (1.8-2.4)
[2021-04-05 07:41] LABS: CREATININE 2.8 mg/dL (0.55-1.3)
[2021-04-05 07:43] LABS: BILIRUBIN,TOTAL 0.3 mg/dL (0.2-1); TOT PROT 6.8 g/dl (6.4-8.2)
[2021-04-05] MEDS ORDERED: PT OWN MED DRAWER 7, Y5N ONE (10:00)
[2021-04-05] MEDS: MULTIVITAMINS (DAILY MVI) TABLET (FP) PO SCH (10:00)
[2021-04-05] MEDS: CITALOPRAM HYDROBROMIDE 10 MG TABLET PO SCH (10:00)
[2021-04-05] MEDS: MYCOPHENOLATE SODIUM 360 MG TABLET.DR PO SCH ×2 (10:01→21:37)
[2021-04-05] MEDS: TACROLIMUS 0.5 MG CAPSULE PO SCH ×2 (10:01→21:37)
[2021-04-05] MEDS ORDERED: MAGNESIUM OXIDE 400 MG TABLET (FP) PO ONE (10:45)
[2021-04-05] MEDS ORDERED: ZINC OXIDE 20% TOPICAL OINTMENT 30 GM TUBE TP PRN (11:00)
[2021-04-05 13:55] VITALS: BMI 18.8
[2021-04-05] MEDS: SODIUM BICARBONATE 650 MG TABLET PO SCH (14:46)
[2021-04-05] MEDS: LACTATED RINGERS SOLUTION 1,000 ML/1,000 ML INFUS.BAG IV SCH (14:51)
[2021-04-05] MEDS: ATORVASTATIN CA 20 MG TABLET (FP) PO SCH (21:37)
[2021-04-06] MEDS: LACTATED RINGERS SOLUTION 1,000 ML/1,000 ML INFUS.BAG IV SCH ×2 (03:00→18:17)
[2021-04-06] MEDS: HEPARIN NA (PORCINE) 5,000 UNITS/ML 1ML VIAL SQ SCH ×3 (05:25→21:17)
[2021-04-06] MEDS: MAG HYDROX/ALH/SMC/DPHA/LIDO 240 ML MOUTHWASH MM SCH ×3 (05:25→18:17)
[2021-04-06] MEDS: MYCOPHENOLATE SODIUM 360 MG TABLET.DR PO SCH ×2 (09:38→21:17)
[2021-04-06] MEDS: TACROLIMUS 0.5 MG CAPSULE PO SCH ×2 (09:39→21:18)
[2021-04-06] MEDS: CITALOPRAM HYDROBROMIDE 10 MG TABLET PO SCH (09:39)
[2021-04-06] MEDS: MULTIVITAMINS (DAILY MVI) TABLET (FP) PO SCH (09:39)
[2021-04-06] MEDS: SODIUM BICARBONATE 650 MG TABLET PO SCH ×2 (09:39→21:17)
[2021-04-06 10:46] LABS: BASO % 0.1 % (0-2.0); EOS % 0.8 % (0-4.5); HEMATOCRIT 27.4 % (35.4-49); HEMOGLOBIN 9.3 GM/dL (11.7-16.9); LYMPH % 8.3 % (8-40); MCH 29.6 pg (25.7-33.7); MEAN PLT VOLUME 8.4 fl (7.5-11.1); MONO % 4.7 % (3.8-10.2); NEUT % 86.1 % (42.8-82.8); PLATELET COUNT 229 K/MM3 (134-434); RBC 3.15 M/mm3 (4.00-5.60); RDW 15.4 % (11.9-15.9); WHITE BLOOD COUNT 6.4 K/mm3 (4.0-10.0)
[2021-04-06 11:40] LABS: CALCIUM 8.4 mg/dL (8.5-10.1)
[2021-04-06 11:41] LABS: ALBUMIN 3.3 g/dl (3.4-5.0); BILIRUBIN,TOTAL 0.6 mg/dL (0.2-1); BLOOD UREA NITROGEN 45.3 mg/dL (7-18); MAGNESIUM 1.4 mg/dL (1.8-2.4); TOT PROT 6.4 g/dl (6.4-8.2)
[2021-04-06 11:42] LABS: CREATININE 2.4 mg/dL (0.55-1.3)
[2021-04-06] MEDS ORDERED: PT OWN MED DRAWER 7, Y5N ONE ×2 (20:48→20:49)
[2021-04-06] MEDS: ATORVASTATIN CA 20 MG TABLET (FP) PO SCH (21:17)
[2021-04-07] MEDS ORDERED: PT OWN MED DRAWER 7, Y5N ONE ×2 (00:01→22:03)
[2021-04-07] MEDS: MAG HYDROX/ALH/SMC/DPHA/LIDO 240 ML MOUTHWASH MM SCH ×4 (00:04→17:45)
[2021-04-07] MEDS: HEPARIN NA (PORCINE) 5,000 UNITS/ML 1ML VIAL SQ SCH ×2 (06:13→13:39)
[2021-04-07] MEDS: LACTATED RINGERS SOLUTION 1,000 ML/1,000 ML INFUS.BAG IV SCH (06:14)
[2021-04-07 07:12] LABS: BASO % 0.1 % (0-2.0); EOS % 1.5 % (0-4.5); HEMATOCRIT 25.1 % (35.4-49); HEMOGLOBIN 8.4 GM/dL (11.7-16.9); LYMPH % 14.7 % (8-40); MCH 29.1 pg (25.7-33.7); MCHC 33.3 g/dl (32.0-35.9); MEAN CELL VOLUME 87.3 fl (80-96); MEAN PLT VOLUME 8.7 fl (7.5-11.1); MONO % 9.8 % (3.8-10.2); NEUT % 73.9 % (42.8-82.8); PLATELET COUNT 189 K/MM3 (134-434); RBC 2.88 M/mm3 (4.00-5.60); RDW 15.5 % (11.9-15.9); WHITE BLOOD COUNT 6.1 K/mm3 (4.0-10.0)
[2021-04-07 07:31] LABS: CALCIUM 8.5 mg/dL (8.5-10.1)
[2021-04-07 07:32] LABS: ALBUMIN 3.2 g/dl (3.4-5.0); MAGNESIUM 1.3 mg/dL (1.8-2.4)
[2021-04-07 07:34] LABS: CREATININE 2.2 mg/dL (0.55-1.3)
[2021-04-07 07:36] LABS: TOT PROT 5.8 g/dl (6.4-8.2)
[2021-04-07 07:41] LABS: BILIRUBIN,TOTAL 0.4 mg/dL (0.2-1); BLOOD UREA NITROGEN 36.9 mg/dL (7-18)
[2021-04-07] MEDS ORDERED: MAGNESIUM 2GM/50ML STERILE WATER IVPB IVPB ONE (09:00)
[2021-04-07] MEDS ORDERED: MAGNESIUM OXIDE 400 MG TABLET (FP) PO SCH ×2 (10:00→22:00)
[2021-04-07] MEDS: MULTIVITAMINS (DAILY MVI) TABLET (FP) PO SCH (10:19)
[2021-04-07] MEDS: TACROLIMUS 0.5 MG CAPSULE PO SCH ×2 (10:19→22:49)
[2021-04-07] MEDS: CITALOPRAM HYDROBROMIDE 10 MG TABLET PO SCH (10:19)
[2021-04-07] MEDS: MYCOPHENOLATE SODIUM 360 MG TABLET.DR PO SCH ×2 (10:19→22:46)
[2021-04-07] MEDS: SODIUM BICARBONATE 650 MG TABLET PO SCH ×2 (10:19→22:49)
[2021-04-07] MEDS ORDERED: ONDANSETRON *ODT* 4 MG TABLET SL ONE (11:00)
[2021-04-07] MEDS ORDERED: SODIUM CHLORIDE 0.45%/POT 20 MEQ/1,000 ML INFUS.BAG IV SCH (12:45)
[2021-04-07 12:57] LABS: RETICULOCYTES 0.28 % (0.5-1.5)
[2021-04-07] MEDS ORDERED: BISACODYL 5 MG TABLET.DR (FP) PO ONE (16:00)
[2021-04-07] MEDS ORDERED: PEG 3350/NA SULF BICARB CL/KCL 4000 ML SOLN.RECON PO ONE (17:00)
[2021-04-07] MEDS: ATORVASTATIN CA 20 MG TABLET (FP) PO SCH (22:45)
[2021-04-08] MEDS: MAG HYDROX/ALH/SMC/DPHA/LIDO 240 ML MOUTHWASH MM SCH ×4 (06:46→18:59)
[2021-04-08] MEDS: MULTIVITAMINS (DAILY MVI) TABLET (FP) PO SCH (10:34)
[2021-04-08] MEDS: SODIUM BICARBONATE 650 MG TABLET PO SCH ×2 (10:34→23:32)
[2021-04-08] MEDS: CITALOPRAM HYDROBROMIDE 10 MG TABLET PO SCH (10:34)
[2021-04-08] MEDS: TACROLIMUS 0.5 MG CAPSULE PO SCH ×2 (10:35→23:31)
[2021-04-08] MEDS: MYCOPHENOLATE SODIUM 360 MG TABLET.DR PO SCH ×2 (10:35→23:31)
[2021-04-08 11:52] LABS: BASO % 0.1 % (0-2.0); EOS % 1.1 % (0-4.5); HEMATOCRIT 25.6 % (35.4-49); HEMOGLOBIN 8.8 GM/dL (11.7-16.9); LYMPH % 13.4 % (8-40); MCH 29.7 pg (25.7-33.7); MCHC 34.5 g/dl (32.0-35.9); MEAN PLT VOLUME 8.6 fl (7.5-11.1); MONO % 8.6 % (3.8-10.2); NEUT % 76.8 % (42.8-82.8); PLATELET COUNT 191 K/MM3 (134-434); RBC 2.98 M/mm3 (4.00-5.60); RDW 15.3 % (11.9-15.9); WHITE BLOOD COUNT 4.7 K/mm3 (4.0-10.0)
[2021-04-08 12:22] LABS: ALBUMIN 3.3 g/dl (3.4-5.0); BLOOD UREA NITROGEN 26.8 mg/dL (7-18); MAGNESIUM 1.6 mg/dL (1.8-2.4)
[2021-04-08 12:27] LABS: BILIRUBIN,TOTAL 0.4 mg/dL (0.2-1); TOT PROT 6.1 g/dl (6.4-8.2)
[2021-04-08] MEDS ORDERED: MAGNESIUM SULF 50% (8.12 MEQ/2 ML-1 GM VIAL) IVPB ONE (15:48)
[2021-04-08] MEDS ORDERED: PT OWN MED DRAWER 7, Y5N ONE ×2 (18:45→22:20)
[2021-04-08] MEDS: ATORVASTATIN CA 20 MG TABLET (FP) PO SCH (23:27)
[2021-04-08] MEDS: HEPARIN NA (PORCINE) 5,000 UNITS/ML 1ML VIAL SQ SCH (23:30)
[2021-04-09] MEDS: MAG HYDROX/ALH/SMC/DPHA/LIDO 240 ML MOUTHWASH MM SCH ×3 (06:44→12:00)
[2021-04-09] MEDS: HEPARIN NA (PORCINE) 5,000 UNITS/ML 1ML VIAL SQ SCH ×2 (06:44→14:21)
[2021-04-09 09:20] VITALS: PULSE 83
[2021-04-09] MEDS: TACROLIMUS 0.5 MG CAPSULE PO SCH (09:39)
[2021-04-09] MEDS: SODIUM BICARBONATE 650 MG TABLET PO SCH (09:39)
[2021-04-09] MEDS: MULTIVITAMINS (DAILY MVI) TABLET (FP) PO SCH (09:39)
[2021-04-09] MEDS: MYCOPHENOLATE SODIUM 360 MG TABLET.DR PO SCH (09:40)
[2021-04-09] MEDS: CITALOPRAM HYDROBROMIDE 10 MG TABLET PO SCH (09:40)
[2021-04-09 14:36] VITALS: BP 125/82; TEMP 97.8
== END 2021-04-09 14:49 | disposition home or self-care (01) | DRG 683 ==
LOC: JER 14:16 → JERBED 15:57 → J4W 18:30
PROVIDERS: ADMIT Internal Medicine; ATTEND Nurse Practitioner Family
PROC: 0DBL8ZX Excision of Transverse Colon, Via Natural or Artificial Opening Endoscopic, Diagnostic (ICD-10-PCS; 2021-04-08)
PROC: 0DBH8ZX Excision of Cecum, Via Natural or Artificial Opening Endoscopic, Diagnostic (ICD-10-PCS; 2021-04-08)
PROC: 0DBB8ZX Excision of Ileum, Via Natural or Artificial Opening Endoscopic, Diagnostic (ICD-10-PCS; 2021-04-08)
PROC: 0DBK8ZX Excision of Ascending Colon, Via Natural or Artificial Opening Endoscopic, Diagnostic (ICD-10-PCS; principal; 2021-04-08 12:00)
DX: N17.9 Acute kidney failure, unspecified (principal); Z94.1 Heart transplant status; E85.81 Light chain (AL) amyloidosis; E87.2 Acidosis; D84.9 Immunodeficiency, unspecified; I10 Essential (primary) hypertension; E78.00 Pure hypercholesterolemia, unspecified; K21.9 Gastro-esophageal reflux disease without esophagitis; I25.10 Atherosclerotic heart disease of native coronary artery without angina pectoris; L89.152 Pressure ulcer of sacral region, stage 2; D63.1 Anemia in chronic kidney disease; F41.8 Other specified anxiety disorders; K13.70 Unspecified lesions of oral mucosa; K58.0 Irritable bowel syndrome with diarrhea; I25.2 Old myocardial infarction; E86.0 Dehydration; K44.9 Diaphragmatic hernia without obstruction or gangrene; I25.119 Atherosclerotic heart disease of native coronary artery with unspecified angina pectoris; I12.9 Hypertensive chronic kidney disease with stage 1 through stage 4 chronic kidney disease, or unspecified chronic kidney disease; N18.30 Chronic kidney disease, stage 3 unspecified; B35.1 Tinea unguium; R29.6 Repeated falls; K57.30 Diverticulosis of large intestine without perforation or abscess without bleeding; K64.8 Other hemorrhoids; D12.3 Benign neoplasm of transverse colon
CPT/HCPCS: 36415; 70450-TC; 71045-TC-FY; 72125-TC; 74176-TC; 76775-TC; 80048; 80053; 80197; 81003; 82272; 82550; 82570; 82607; 82668; 82728; 82746; 82962; 83010; 83540; 83550; 83615; 83735; 84100; 84156; 84300; 84443; 84484; 85025; 85045; 86140; 87015; 87045; 87046; 87086; 87177; 87205; 87207; 87209; 87324; 87328; 87329; 87449; 88305-TC; 93005; 93010; 93306-TC; 97116-GP; 97161-GP; 99285-25; C9803; J1644; J3480; Q0162; U0003; U0005